=== PATIENT | female | born 2000 | race Caucasian/White ===

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

== ENCOUNTER 2018-06-30 03:17 | Emergency (ER) | payer OTHER ==
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
[2018-06-30] MEDS ORDERED: Adacel Vial IM ONE ×2 (03:31→04:55)
[2018-06-30 04:19] LABS: BASOPHIL % 0.4 % (0.0-0.4); Basophil (Absolute #) 0.03 (0-0.4); Eosinophil % 0.2 % (0.00-5.0); Eosinophil (Absolute #) 0.02 (0-0.5); Granulocyte Absolute (ANC) 5.58 (1.4-6.9); Granulocytes % 68.8 % (36.0-66.0); Hematocrit 39.6 % (35-47); Hemoglobin 12.8 gm/dl (12.0-16.0); Lymphocyte (Absolute #) 2.09 (1.0-4.6); Lymphocytes % 25.8 % (24.0-44.0); Mean Corpuscular Hemoglobin 28.4 pg (26-32); Mean Corpuscular Hgb Concent. 32.3 g/dl (32-36); Mean Platelet Volume 9.8 fl (6-9.5); Monocyte (Absolute #) 0.39 (0.0-1.3); Monocytes % 4.8 % (0.0-12.0); Platelet Count 294 K/mm3 (150-450); Red Cell Distribution Width 12.6 % (11.5-14.0); White Blood Count 8.1 K/mm3 (4.0-10.5)
[2018-06-30 04:39] LABS: ETHYL ALCOHOL 172 mg/dL (0-10)
[2018-06-30 04:41] LABS: ACETAMINOPHEN < 10 ug/ml (10-30); SALICYLATE < 1.0 mg/dL (2-20)
[2018-06-30 04:45] LABS: Appearance CLEAR (CLEAR); Bilirubin NEGATIVE (NEGATIVE); Blood LARGE Ery/ul (0-5); Glucose NEGATIVE (NEGATIVE); Ketones NEGATIVE (NEGATIVE); Leukocyte Esterase MODERATE (NEGATIVE); Nitrite NEGATIVE (NEGATIVE); Protein,Urine Dip NEGATIVE (Negative); Specific Gravity 1.005 (1.005-1.025); Urobilinogen NEGATIVE mg/dL (0-1)
[2018-06-30 04:49] LABS: Amphetamine,Urine NEGATIVE (NEGATIVE); Barbiturate,Urine NEGATIVE (NEGATIVE); Benzodiazepine,Urine NEGATIVE (NEGATIVE); Cocaine,Urine NEGATIVE (NEGATIVE); Methadone,Urine NEGATIVE (NEGATIVE); Opiate,Urine NEGATIVE (NEGATIVE); PCP,Urine NEGATIVE (NEGATIVE); THC,Urine NEGATIVE (NEGATIVE)
[2018-06-30] MEDS ORDERED: KEFLEX 500 MG PO ONE (05:00)
[2018-06-30] MEDS ORDERED: KEFLEX 500 MG ONE (05:03)
[2018-06-30] MEDS ORDERED: Sodium Chloride 0.9% 1000 ML 1,000 ML IV STA (07:54)
[2018-06-30] MEDS ORDERED: THIAMINE 200 MG/2 ML IV ONE (07:54)
[2018-06-30] MEDS ORDERED: THIAMINE 200 MG/2 ML ONE (07:56)
[2018-06-30] MEDS ORDERED: Sodium Chloride 0.9% 1000 ML 1,000 ML ONE (07:56)
[2018-06-30 10:26] VITALS: BP 110/72; PULSE 96; O2SAT 98
== END 2018-06-30 10:51 | disposition short-term general hospital (02) ==
LOC: ED 03:17
DX: T14.91XA Suicide attempt, initial encounter (principal); S40.212A Abrasion of left shoulder, initial encounter; N39.0 Urinary tract infection, site not specified; R31.9 Hematuria, unspecified; V49.9XXA Car occupant (driver) (passenger) injured in unspecified traffic accident, initial encounter
CPT/HCPCS: 36415; 80307; 81001; 81025; 85025; 87086; 90471; 96374; 99285; G0481; 36000; 90715; A9270-GY; G0480

== ENCOUNTER 2021-06-28 01:59 | Emergency (ER) | payer SELFPAY ==
[2021-06-28] MEDS ORDERED: Zofran 4 MG/2 ML VIAL IV ONE (02:26)
[2021-06-28] MEDS ORDERED: PROTONIX 40 MG IV IV ONE ×2 (02:26→02:27)
[2021-06-28] MEDS ORDERED: Sodium Chloride 0.9% 1000 ML 1,000 ML IV STA (02:26)
[2021-06-28] MEDS ORDERED: Zofran 4 MG/2 ML VIAL ONE (02:27)
--- NOTE | 2021-06-28 02:37 | ERPHSYRPT ---
- History of Present Illness Time Seen by Provider: 06/28/21 02:10 Source: patient Exam Limitations: no limitations Patient Subjective Stated Complaint: pt states "I have been vomiting for the past 2 weeks." Triage Nursing Assessment: pt ambulated into the er; pt is axo x4; c/o vomiting; pt denies abd pain; pt states vomiting for the past 2 weeks; pt denies following up with PCP; pt denies N/D; abd is round and soft; pt states last BM was 12/5; active bowel sounds in all quads; vitals wnl Physician History: Patient is a 20-year-old female presents to our ED for evaluation of intermittent nausea vomiting for 2 weeks. Patient states she was at work and vomited. Patient states that her boss advised her to come to the ER to get checked out. Patient denies pain. No abdominal pain. No chest pain. No diarrhea. No rash. No fever. No trauma. Symptoms are mild to moderate in intensity. No specific worsening or improving factors. No active bleeding. Patient is otherwise healthy. No significant past medical history. Patient is not on blood thinners. Patient voices no other complaints or concerns at this time. Timing/Duration: today Severity: mild Modifying Factors: Improves With: nothing Associated Symptoms: denies symptoms Allergies/Adverse Reactions: No Known Drug Allergies Allergy (Verified 06/28/21 02:04) Home Medications: Norethindrone AC-Eth Estradiol [Microgestin] 1 each PO DAILY 06/28/21 [History] Hx Tetanus, Diphtheria Vaccination/Date Given: Yes Hx Influenza Vaccination/Date Given: No Hx Pneumococcal Vaccination/Date Given: No Travel Risk - International Travel Have you traveled outside of the country in past 3 weeks: No - Coronavirus Screening Are you exhibiting any of the following symptoms?: Yes Symptoms: Vomiting/Diarrhea Close contact with a COVID-19 positive Pt in past 14-21 Days: No - Vaccine Status Have you recieved a 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 - Vaccination Dates Date of 2cond Vaccination (if applicable): 09/12 - Review of Systems Constitutional: No Symptoms, No Fever, No Chills Eyes: No Symptoms Ears, Nose, & Throat: No Symptoms Respiratory: No Symptoms, No Cough, No Dyspnea Cardiac: No Symptoms, No Chest Pain, No Edema, No Syncope Abdominal/Gastrointestinal: No Symptoms, No Abdominal Pain, No Nausea, No Vomiting, No Diarrhea Genitourinary Symptoms: No Symptoms, No Dysuria Musculoskeletal: No Symptoms, No Back Pain, No Neck Pain Skin: No Symptoms, No Rash Neurological: No Symptoms, No Dizziness, No Focal Weakness, No Sensory Changes Psychological: No Symptoms Endocrine: No Symptoms Hematologic/Lymphatic: No Symptoms Immunological/Allergic: No Symptoms All Other Systems: Reviewed and Negative - Past Medical History Pertinent Past Medical History: No Neurological History: No Pertinent History ENT History: No Pertinent History Cardiac History: No Pertinent History Respiratory History: No Pertinent History Endocrine Medical History: No Pertinent History Musculoskeletal History: No Pertinent History GI Medical History: No Pertinent History History: No Pertinent History Psycho-Social History: Anxiety, Depression Female Reproductive Disorders: No Pertinent History - Past Surgical History Past Surgical History: No - Social History Smoking Status: Current every day smoker How long have you smoked: 3 years Exposure to second hand smoke: Yes Drug Use: none Patient Lives Alone: No - Female History Hx Now: No - Nursing Vital Signs Nursing Vital Signs: Initial Vital Signs Temperature 98.1 F 06/28/21 02:06 Pulse Rate 103 H 06/28/21 02:06 Respiratory Rate 18 06/28/21 02:06 Blood Pressure 132/95 06/28/21 02:06 O2 Sat by Pulse Oximetry 99 06/28/21 02:06 Pain Scale Pain Intensity 0 - Physical Exam General Appearance: no apparent distress, alert Eye Exam: PERRL/EOMI, eyes nml inspection Ears, Nose, Throat Exam: normal ENT inspection, TMs normal, pharynx normal, moist mucous membranes Neck Exam: normal inspection, non-tender, supple, full range of motion Respiratory Exam: normal breath sounds, lungs clear, airway intact, No respiratory distress Cardiovascular Exam: regular rate/rhythm, normal heart sounds, normal peripheral pulses Gastrointestinal/Abdomen Exam: soft, normal bowel sounds, No tenderness, No mass Back Exam: normal inspection, normal range of motion, No CVA tenderness, No vertebral tenderness Extremity Exam: normal inspection, normal range of motion, pelvis stable Neurologic Exam: alert, oriented x 3, cooperative, normal mood/affect, nml cerebellar function, nml station & gait, sensation nml, No motor deficits Skin Exam: normal color, warm, dry, No rash Lymphatic Exam: No adenopathy SpO2 Interpretation: normal SpO2: 99 O2 Delivery: Room Air - Course Nursing assessment & vital signs reviewed: Yes Ordered Tests: Active Orders 24 hr Category Date Time Status IV Insertion STAT Care 06/28/21 02:26 Active CBC W DIFF Stat Lab 06/28/21 02:26 Completed CMP Stat Lab 06/28/21 02:26 Completed CULTURE,URINE Stat Lab 06/28/21 02:26 Received HCG,QUALITATIVE URINE Stat Lab 06/28/21 02:26 Completed LIPASE Stat Lab 06/28/21 02:26 Completed UA W/RFX UR CULTURE Stat Lab 06/28/21 02:26 Completed Medication Summary Generic Name Dose Route Start Last Admin Trade Name Freq PRN Reason Stop Dose Admin Sodium Chloride 1,000 mls @ 999 mls/hr 06/28/21 02:26 06/28/21 02:39 Sodium Chloride 0.9% 1000 Ml IV 06/28/21 03:26 999 mls/hr .Q1H1M STA Administration Discontinued Medications Generic Name Dose Route Start Last Admin Trade Name Freq PRN Reason Stop Dose Admin Sodium Chloride Confirm 06/28/21 02:39 Sodium Chloride 0.9% 1000 Ml Administered 06/28/21 02:40 Dose 1,000 mls @ ud .ROUTE .STK-MED ONE Ondansetron HCl 4 mg 06/28/21 02:26 06/28/21 02:38 Ondansetron Hcl 4 Mg/2 Ml Vial IV 06/28/21 02:27 4 mg STAT ONE Administration Ondansetron HCl Confirm 06/28/21 02:27 Ondansetron Hcl 4 Mg/2 Ml Vial Administered 06/28/21 02:28 Dose 4 mg .ROUTE .STK-MED ONE Pantoprazole Sodium 40 mg 06/28/21 02:26 06/28/21 02:38 Pantoprazole 40 Mg Vial IV 06/28/21 02:27 40 mg STAT ONE Administration Pantoprazole Sodium Confirm 06/28/21 02:27 Pantoprazole 40 Mg Vial Administered 06/28/21 02:28 Dose 40 mg IV .STK-MED ONE Lab/Rad Data: Laboratory Result Diagrams 06/28/21 02:26 06/28/21 02:26 Laboratory Results 06/28/21 06/28/21 06/28/21 Range/Units 02:26 02:26 02:26 WBC 12.0 H (4.0-10.5) K/mm3 RBC 4.33 (4.1-5.4) M/mm3 Hgb 12.2 (12.0-16.0) gm/dl Hct 38.6 (35-47) % MCV 89.1 (78-100) fl MCH 28.2 (26-32) pg MCHC 31.6 L (32-36) g/dl RDW 12.8 (11.5-14.0) % Plt Count 326 (150-450) K/mm3 MPV 9.7 (7.5-11.0) fl Gran % 55.0 (36.0-66.0) % Eos # (Auto) 0.11 (0-0.5) Absolute Lymphs (auto) 4.41 (1.0-4.6) Absolute Monos (auto) 0.82 (0.0-1.3) Lymphocytes % 36.9 (24.0-44.0) % Monocytes % 6.9 (0.0-12.0) % Eosinophils % 0.9 (0.00-5.0) % Basophils % 0.3 (0.0-0.4) % Absolute Granulocytes 6.57 (1.4-6.9) Basophils # 0.04 (0-0.4) Sodium 136 L (137-145) mmol/L Potassium 3.8 (3.5-5.1) mmol/L Chloride 102 (98-107) mmol/L Carbon Dioxide 25 (22-30) mmol/L Anion Gap 12.8 (5-15) MEQ/L BUN 11 (7-17) mg/dL Creatinine 0.91 (0.52-1.04) mg/dL Estimated GFR > 60.0 ML/MIN Glucose 112 H (74-106) mg/dL Calcium 9.5 (8.4-10.2) mg/dL Total Bilirubin 0.40 (0.2-1.3) mg/dL AST 20 (14-36) U/L ALT 17 (0-35) U/L Alkaline Phosphatase 49 (38-126) U/L Serum Total Protein 7.1 (6.3-8.2) g/dL Albumin 4.3 (3.5-5.0) g/dL Lipase 105 (23-300) U/L Urine Color (YELLOW) Urine Appearance (CLEAR) Urine pH (5-6) Ur Specific Mina (1.005-1.025) Urine Protein (Negative) Urine Ketones (NEGATIVE) Urine Blood (0-5) Dash/ul Urine Nitrite (NEGATIVE) Urine Bilirubin (NEGATIVE) Urine Urobilinogen (0-1) mg/dL Ur Leukocyte Esterase (NEGATIVE) Urine WBC (Auto) (0-5) /HPF Urine RBC (Auto) (0-2) /HPF U Epithel Cells (Auto) (FEW) /HPF Urine Bacteria (Auto) (NEGATIVE) /HPF Urine Mucus (Auto) (NEGATIVE) /HPF Urine Culture Reflexed (NO) Urine Glucose (NEGATIVE) mg/dL Urine HCG, Qual NEGATIVE (Negative) 06/28/21 Range/Units 02:26 WBC (4.0-10.5) K/mm3 RBC (4.1-5.4) M/mm3 Hgb (12.0-16.0) gm/dl Hct (35-47) % MCV (78-100) fl MCH (26-32) pg MCHC (32-36) g/dl RDW (11.5-14.0) % Plt Count (150-450) K/mm3 MPV (7.5-11.0) fl Gran % (36.0-66.0) % Eos # (Auto) (0-0.5) Absolute Lymphs (auto) (1.0-4.6) Absolute Monos (auto) (0.0-1.3) Lymphocytes % (24.0-44.0) % Monocytes % (0.0-12.0) % Eosinophils % (0.00-5.0) % Basophils % (0.0-0.4) % Absolute Granulocytes (1.4-6.9) Basophils # (0-0.4) Sodium (137-145) mmol/L Potassium (3.5-5.1) mmol/L Chloride (98-107) mmol/L Carbon Dioxide (22-30) mmol/L Anion Gap (5-15) MEQ/L BUN (7-17) mg/dL Creatinine (0.52-1.04) mg/dL Estimated GFR ML/MIN Glucose (74-106) mg/dL Calcium (8.4-10.2) mg/dL Total Bilirubin (0.2-1.3) mg/dL AST (14-36) U/L ALT (0-35) U/L Alkaline Phosphatase (38-126) U/L Serum Total Protein (6.3-8.2) g/dL Albumin (3.5-5.0) g/dL Lipase (23-300) U/L Urine Color MATTIE (YELLOW) Urine Appearance CLOUDY (CLEAR) Urine pH 5.0 (5-6) Ur Specific Mina 1.031 (1.005-1.025) Urine Protein 30 (Negative) Urine Ketones NEGATIVE (NEGATIVE) Urine Blood SMALL (0-5) Dash/ul Urine Nitrite NEGATIVE (NEGATIVE) Urine Bilirubin NEGATIVE (NEGATIVE) Urine Urobilinogen NEGATIVE (0-1) mg/dL Ur Leukocyte Esterase MODERATE (NEGATIVE) Urine WBC (Auto) 6-10 (0-5) /HPF Urine RBC (Auto) 0-2 (0-2) /HPF U Epithel Cells (Auto) MANY (FEW) /HPF Urine Bacteria (Auto) MODERATE (NEGATIVE) /HPF Urine Mucus (Auto) SLIGHT (NEGATIVE) /HPF Urine Culture Reflexed YES (NO) Urine Glucose NEGATIVE (NEGATIVE) mg/dL Urine HCG, Qual (Negative) - Progress Progress: improved Progress Note: Patient reassessed. She feels well. Patient tolerated p.o. Working diagnosis at this time is gastritis. Patient also has a urinary tract infection. A prescription for Macrobid, Protonix and Zofran was forwarded to patient's pharmacy. Patient understands that she is to maintain a clear liquid diet for the next several days. Patient agrees to follow-up with her primary care doctor within 48 hours for reevaluation. She voices no other complaints or concerns at this time. Portions of this note were created with voice recognition technology. There may be grammatical, spelling, punctuation or sound alike errors 06/28/21 03:25 Counseled pt/family regarding: lab results, diagnosis, need for follow-up - Departure Departure Disposition: Home Clinical Impression: UTI (urinary tract infection), Nausea and vomiting, Gastritis Condition: Stable Critical Care Time: No Referrals: NURY GAITAN MD [Primary Care Provider] - Follow up/PCP as directed Additional Instructions: Discharge/Care Plan EZEQUIELALFONSO BURNS was seen on 06/28/21 in the Emergency Room. The patient was counseled regarding Diagnosis,Lab results, Imaging studies, need for follow up and when to return to the Emergency Room. Prescriptions given: Discharge Note I have spoken with the patient and/or caregivers. I have explained the patient's condition, diagnosis and treatment plan based on the information available to me at this time. I have answered the patient's and/or caregiver's questions and addressed any concerns. The patient and/or caregivers have as good understanding of the patient's diagnosis, condition and treatment plan as can be expected at this point. The vital signs have been stable. The patient's condition is stable and appropriate for discharge from the emergency department. The patient will pursue further outpatient evaluation with the primary care physician or other designated or consulting physician as outlined in the discharge instructions. The patient and/or caregivers are agreeable to this plan of care and follow-up instructions have been explained in detail. The patient and/or caregivers have received these instruction. The patient/and or caregivers are aware that any significant change in condition or worsening of symptoms should prompt an immediate return to this or the closest emergency department or call 911. Prescriptions: Ondansetron ODT 4 MG [Zofran Odt 4 mg] 4 mg PO Q6H PRN PRN #10 tablet PRN Reason: Vomiting Nitrofurantoin Macro 100 mg [Macrobid 100MG Capsule] 100 mg PO BID 7 Days #14 cap Famotidine 20 mg [Pepcid 20 MG] 20 mg PO BID 14 Days #28 tablet
[2021-06-28] MEDS ORDERED: Sodium Chloride 0.9% 1000 ML 1,000 ML ONE (02:39)
[2021-06-28 02:52] LABS: Absolute Neutrophil Ct (ANC) 6.57 (1.4-6.9); BASOPHIL % 0.3 % (0.0-0.4); Basophil (Absolute #) 0.04 (0-0.4); Eosinophil % 0.9 % (0.00-5.0); Eosinophil (Absolute #) 0.11 (0-0.5); Hematocrit 38.6 % (35-47); Hemoglobin 12.2 gm/dl (12.0-16.0); Lymphocyte (Absolute #) 4.41 (1.0-4.6); Lymphocytes % 36.9 % (24.0-44.0); Mean Cell Volume 89.1 fl (78-100); Mean Corpuscular Hemoglobin 28.2 pg (26-32); Mean Corpuscular Hgb Concent. 31.6 g/dl (32-36); Mean Platelet Volume 9.7 fl (7.5-11.0); Monocyte (Absolute #) 0.82 (0.0-1.3); Monocytes % 6.9 % (0.0-12.0); Platelet Count 326 K/mm3 (150-450); Red Blood Count 4.33 M/mm3 (4.1-5.4); Red Cell Distribution Width 12.8 % (11.5-14.0)
[2021-06-28 02:57] LABS: Appearance CLOUDY (CLEAR); Bacteria MODERATE /HPF (NEGATIVE); Bilirubin NEGATIVE (NEGATIVE); Blood SMALL Ery/ul (0-5); Epithelial Cells MANY /HPF (FEW); Glucose NEGATIVE (NEGATIVE); Ketones NEGATIVE (NEGATIVE); Leukocyte Esterase MODERATE (NEGATIVE); Mucus SLIGHT /HPF (NEGATIVE); Nitrite NEGATIVE (NEGATIVE); Protein,Urine Dip 30 (Negative); RBC 0-2 /HPF (0-2); Specific Gravity 1.031 (1.005-1.025); Urobilinogen NEGATIVE mg/dL (0-1)
[2021-06-28 03:06] VITALS: BP 104/69; PULSE 82
[2021-06-28 03:08] LABS: ALBUMIN 4.3 g/dL (3.5-5.0); ALKALINE PHOSPHATASE 49 U/L (38-126); ANION GAP 12.8 MEQ/L (5-15); BLOOD UREA NITROGEN 11 mg/dL (7-17); CHLORIDE 102 mmol/L (98-107); Calcium 9.5 mg/dL (8.4-10.2); Carbon Dioxide 25 mmol/L (22-30); Creatinine 1 0.91 mg/dL (0.52-1.04); EST GLOMERULAR FILTRATION RATE > 60.0 ML/MIN; Glucose 112 mg/dL (74-106); LIPASE 105 U/L (23-300); Potassium 3.8 mmol/L (3.5-5.1); SGOT/AST 20 U/L (14-36); SGPT/ALT 17 U/L (0-35); SODIUM 136 mmol/L (137-145); Total Protein 7.1 g/dL (6.3-8.2)
[2021-06-28 03:17] VITALS: O2SAT 99
== END 2021-06-28 03:38 | disposition home or self-care (01) ==
LOC: ED 01:59
DX: K29.70 Gastritis, unspecified, without bleeding (principal); N39.0 Urinary tract infection, site not specified; R11.2 Nausea with vomiting, unspecified; Z72.0 Tobacco use
CPT/HCPCS: 36000; 36415; 80053; 81001; 83690; 84703; 85025; 87086; 96360; 96374; 96375; 99284; J2405

== ENCOUNTER 2024-06-06 01:16 | Emergency (ER) | payer MEDICAID, OTHER ==
[2024-06-06 01:28] VITALS: RESP 18; TEMP 98
[2024-06-06] MEDS ORDERED: Rocephin 1000 MG INJ ONE (01:36)
[2024-06-06] MEDS ORDERED: XYLOCAINE 1% HCL 20 ML MDV ONE (01:36)
--- NOTE | 2024-06-06 01:40 | ERPHSYRPT ---
- History of Present Illness Time Seen by Provider: 06/06/24 01:35 Source: patient Exam Limitations: no limitations Patient Subjective Stated Complaint: pt states that she has rt earache Triage Nursing Assessment: pt ambulated into the er; pt is axo x4; pt is holding rt ear, crying; c/o earache; pt states 8/10 pain to rt ear; no respiratory distress present; skin PDW; vitals wnl Physician History: Patient is 23-year-old female 4 months started having a severe right side ear pain with some purulent discharge for 1 day. Pain got worse so patient came to the emergency room. Patient denies any fever chills nausea vomiting any vaginal discharge or any vaginal hemorrhage. Timing/Duration: abrupt onset Severity: moderate ENT Location: ear (R) Prearrival Treatment: no prearrival treatment Associated Symptoms: ear pain (R) Allergies/Adverse Reactions: No Known Drug Allergies Allergy (Verified 06/06/24 01:19) Home Medications: Vit No.179/Iron/Folic [ Tablet] 1 each PO DAILY 06/06/24 [History] Hx Tetanus, Diphtheria Vaccination/Date Given: Yes Hx Influenza Vaccination/Date Given: No Hx Pneumococcal Vaccination/Date Given: No Immunizations Up to Date: Yes Travel Risk - International Travel Have you traveled outside of the country in past 3 weeks: No - Emerging Infectious Disease Are you exhibiting symptoms associated with any current EIDs: No - Review of Systems Constitutional: No Fever, No Chills Eyes: No Symptoms Ears, Nose, & Throat: Ear Pain Respiratory: No Cough, No Dyspnea Cardiac: No Chest Pain, No Edema, No Syncope Abdominal/Gastrointestinal: No Abdominal Pain, No Nausea, No Vomiting, No Diarrhea Genitourinary Symptoms: No Dysuria Musculoskeletal: No Back Pain, No Neck Pain Skin: No Rash Neurological: No Dizziness, No Focal Weakness, No Sensory Changes Psychological: No Symptoms Endocrine: No Symptoms All Other Systems: Reviewed and Negative - Past Medical History Pertinent Past Medical History: No Neurological History: No Pertinent History ENT History: No Pertinent History Cardiac History: No Pertinent History Respiratory History: No Pertinent History Endocrine Medical History: No Pertinent History Musculoskeletal History: No Pertinent History GI Medical History: No Pertinent History History: No Pertinent History Psycho-Social History: Anxiety, Depression Female Reproductive Disorders: No Pertinent History - Past Surgical History Past Surgical History: No - Female History Hx Now: Yes Gestational Age: 4 months - Social History Smoking Status: Smoker, status unknown How long have you smoked: 3 years Exposure to second hand smoke: Yes Drug Use: none Patient Lives Alone: No - Social Determinants of Health Will the patient participate in the screening: Yes Do you worry about a steady place to live?: No Do you have any problems with any of the following?: No known problems In the past 12 months,have you had to go without utilities?: No Transportation Issues: No Has anyone in your support network made you feel unsafe?: No Have you or anyone in your house had to go without enough: No - Nursing Vital Signs Nursing Vital Signs: Initial Vital Signs Pulse Rate 89 06/06/24 01:20 Blood Pressure 140/78 06/06/24 01:20 O2 Sat by Pulse Oximetry 100 06/06/24 01:20 Pain Scale Pain Intensity 8 - Physical Exam General Appearance: no apparent distress, alert Eye Exam: bilateral eye: PERRL, EOMI Ear Exam: right ear: discharge, erythema, TM red, TM bulging Nasal Exam: normal inspection Throat Exam: pharynx normal, moist mucus membranes, No tonsillar exudate Neck Exam: supple Cardiovascular/Respiratory Exam: normal breath sounds, regular rate/rhythm Abdominal Exam: non-tender, soft Neurologic Exam: alert, oriented x 3, sensation nml, No motor deficits Skin Exam: normal color, warm, dry SpO2: 100 - Course Nursing assessment & vital signs reviewed: Yes Ordered Tests: Medication Summary Discontinued Medications Generic Name Dose Route Start Last Admin Trade Name Freq PRN Reason Stop Dose Admin Ceftriaxone Sodium 1,000 mg 06/06/24 01:33 Ceftriaxone Sodium 1000 Mg Inj Vial IM 06/06/24 01:34 STAT ONE - Progress Progress: improved, pain not gone completely Counseled pt/family regarding: diagnosis, need for follow-up Medical Desision Making - Risk of complications Minimal Risk: Minimal risk of morbidity - Departure Departure Disposition: Home Clinical Impression: Otitis media Qualifiers: Otitis media type: suppurative Chronicity: acute Laterality: right Recurrence: non-recurrent Spontaneous tympanic membrane rupture: without spontaneous rupture Qualified Code(s): H66.001 - Acute suppurative otitis media without spontaneous rupture of ear drum, right ear Condition: Stable Critical Care Time: No Referrals: NURY GAITAN MD [Primary Care Provider] - Follow Up with PCP/3 days Instructions: Ear infections in adults Additional Instructions: Discharge/Care Plan ALFONSO NIEVES was seen on 06/06/24 in the Emergency Room. The patient was counseled regarding Diagnosis,Lab results, Imaging studies, need for follow up and when to return to the Emergency Room. Prescriptions given: Discharge Note I have spoken with the patient and/or caregivers. I have explained the patient's condition, diagnosis and treatment plan based on the information available to me at this time. I have answered the patient's and/or caregiver's questions and addressed any concerns. The patient and/or caregivers have as good understanding of the patient's diagnosis, condition and treatment plan as can be expected at this point. The vital signs have been stable. The patient's condition is stable and appropriate for discharge from the emergency department. The patient will pursue further outpatient evaluation with the primary care physician or other designated or consulting physician as outlined in the discharge instructions. The patient and/or caregivers are agreeable to this plan of care and follow-up instructions have been explained in detail. The patient and/or caregivers have received these instruction. The patient/and or caregivers are aware that any significant change in condition or worsening of symptoms should prompt an immediate return to this or the closest emergency department or call 911. ALFONSO NIEVES was seen on 06/06/24 n the Emergency Room. At that time you were treated for an emergent condition, during your visit Laboratory, Radiology and/or other procedures may have been ordered. It is very important that you follow-up with your Primary Care Physician NURY GAITAN within the next 24-48 hours to review your Emergency Room visit and the final results of testing that was ordered. Some test results such as Urine Cultures, Blood Cultures, and other cultures if ordered will not be finalized for 24-48 hours. If you do not have a Primary Care Provider please call the medical records department at [phone] ext [phone] to obtain a copy of your results or you may sign into our patient portal to obtain these results by visiting us @ [email or web address] and completing the following steps: 1. Click on the Patient Portal link 2. Click the Patient Self Enrollment Link to complete the enrollment form and entering your 3. Once the enrollment form is completed you will receive an email with a temporary ID and password at the email address you provided. 4. Next choose a user name and password. Your user name must be at least 4 characters long and your password must be at least 4 characters long. 5. Choose a security question from the list and provide your answer to the question. If you already have signed into the Health Portal you may access your Health Care Information 12/02 by the following steps: 1. Login to our website @ [email or web address] 2. Enter your original user name and password. FAQS The [facility] Health Portal is an online tool that contains your Lab Results, Radiology Reports, Visit History, Discharge Instructions and Health Summary Lab and Radiology Results will not be available for 72 hours on the portal. The Portal is a secure site, passwords are encryted and URLs are re-written so they cannot be copied and pasted. You and authorized family members are the only ones who can access your Portal. Also there is a timeout feature that protects your information if you leave the Portal page open. If you have technical difficulty please use the Contact Us link on the page this will allow you to submit any questions you have regarding the Portal or you may contact the Medical Record Department at [phone] ext [phone]. Prescriptions: Amoxicillin 500 mg PO TID #30 tablet
[2024-06-06] MEDS: Rocephin 1000 MG INJ IM ONE (01:41)
[2024-06-06] MEDS ORDERED: CORTISPORIN EAR DROPS 10 ML SUSPENSION OT ONE (01:43)
[2024-06-06] MEDS: CORTISPORIN EAR DROPS 10 ML SUSPENSION OT SCH (01:43)
[2024-06-06 02:04] VITALS: BP 116/61; PULSE 75; O2SAT 97
== END 2024-06-06 02:06 | disposition home or self-care (01) ==
LOC: ED 01:16
DX: H66.001 Acute suppurative otitis media without spontaneous rupture of ear drum, right ear (principal); H92.01 Otalgia, right ear; Z33.1 Pregnant state, incidental
CPT/HCPCS: 96372; 99283; 99284; J0696; A9270-GY

== ENCOUNTER 2024-08-10 19:33 | Observation (INO) | payer OTHER ==
--- NOTE | 2024-08-10 19:40 | ERPHSYRPT ---
- History of Present Illness Time Seen by Provider: 08/10/24 19:40 Source: patient, family Exam Limitations: no limitations Physician History: Pt had onset of vomiting and nasal congest, short of breath past 2 days - dizziness today - no abd pain or bleeding or discharg but is 26 weeks and due in October. Chest is clear, ht reg without m abd nontender gravid uterus, Discussed with pt and available family risks and benefits of testing/Tx in cluding CBC, CMP, EKG, Trop, BNP, D-dimer, UA, Amylase, Lipase, \ swabs for Covid, RSV, Flu and Strep, and they wish to proceed so these are ordered. family is here in ER as independent source for Hx. Results discussed with pt and available family. Timing/Duration: yesterday Severity: moderate Associated Symptoms: nausea, vomiting, shortness of breath Allergies/Adverse Reactions: No Known Drug Allergies Allergy (Verified 06/06/24 01:19) Home Medications: Vit No.179/Iron/Folic [ Tablet] 1 each PO DAILY 06/06/24 [History] Doxylamine Succinate [Unisom] 1 tab PO PRN 08/10/24 [History] Famotidine [Pepcid AC] 1 tab PO DAILY 08/10/24 [History] Ondansetron ODT 4 MG [Zofran Odt 4 mg] 1 tab PO PRN 08/10/24 [History] Hx Tetanus, Diphtheria Vaccination/Date Given: Yes Hx Influenza Vaccination/Date Given: No Hx Pneumococcal Vaccination/Date Given: No Travel Risk - Emerging Infectious Disease Are you exhibiting symptoms associated with any current EIDs: No - Review of Systems Constitutional: No Fever, No Chills Eyes: No Symptoms Ears, Nose, & Throat: No Symptoms Respiratory: Dyspnea, No Cough Cardiac: No Chest Pain, No Edema, No Syncope Abdominal/Gastrointestinal: Nausea, Vomiting, No Abdominal Pain, No Diarrhea Genitourinary Symptoms: No Dysuria Musculoskeletal: No Back Pain, No Neck Pain Skin: No Rash Neurological: Dizziness, No Focal Weakness, No Sensory Changes Psychological: No Symptoms Endocrine: No Symptoms Hematologic/Lymphatic: No Symptoms Immunological/Allergic: No Symptoms All Other Systems: Reviewed and Negative - Past Medical History Pertinent Past Medical History: No Neurological History: No Pertinent History ENT History: No Pertinent History Cardiac History: No Pertinent History Respiratory History: No Pertinent History Endocrine Medical History: No Pertinent History Musculoskeletal History: No Pertinent History GI Medical History: No Pertinent History History: No Pertinent History Psycho-Social History: Anxiety, Depression Female Reproductive Disorders: No Pertinent History - Past Surgical History Past Surgical History: No - Social History Smoking Status: Smoker, status unknown How long have you smoked: 3 years Exposure to second hand smoke: Yes Drug Use: none Patient Lives Alone: No - Social Determinants of Health Will the patient participate in the screening: Yes Do you worry about a steady place to live?: No In the past 12 months,have you had to go without utilities?: No Transportation Issues: No Has anyone in your support network made you feel unsafe?: No Have you or anyone in your house had to go without enough: No - Nursing Vital Signs Nursing Vital Signs: Initial Vital Signs Temperature 98.5 F 08/10/24 19:36 Pulse Rate 111 H 08/10/24 19:36 Respiratory Rate 18 08/10/24 19:36 Blood Pressure 122/71 08/10/24 19:36 O2 Sat by Pulse Oximetry 100 08/10/24 19:36 Pain Scale Pain Intensity 0 - Physical Exam General Appearance: no apparent distress, alert Eye Exam: PERRL/EOMI, eyes nml inspection Ears, Nose, Throat Exam: normal ENT inspection, TMs normal, pharynx normal, moist mucous membranes Neck Exam: normal inspection, non-tender, supple, full range of motion Respiratory Exam: normal breath sounds, lungs clear, No respiratory distress Cardiovascular Exam: regular rate/rhythm, normal heart sounds, normal peripheral pulses Gastrointestinal/Abdomen Exam: soft, normal bowel sounds, No tenderness, No mass Pelvic Exam: deferred Rectal Exam: deferred Back Exam: normal inspection, normal range of motion, No CVA tenderness, No vertebral tenderness Extremity Exam: normal inspection, normal range of motion, pelvis stable Neurologic Exam: alert, oriented x 3, cooperative, normal mood/affect, nml cerebellar function, nml station & gait, sensation nml, No motor deficits Skin Exam: normal color, warm, dry, No rash Lymphatic Exam: No adenopathy SpO2 Interpretation: normal SpO2: 98 O2 Delivery: Room Air - Course Nursing assessment & vital signs reviewed: Yes EKG Interpreted by Me: Sinus Tach, NORMAL AXIS, NORMAL INTERVALS, NORMAL QRS, Non-specific ST Changes Ordered Tests: Active Orders 24 hr Category Date Time Status EKG-ER Only STAT Care 08/10/24 19:54 Active Heart Tones-ED STAT Care 08/10/24 20:04 Active IV Insertion STAT Care 08/10/24 19:54 Active Telemetry q4h Care 08/10/24 22:54 Active AMYLASE Stat Lab 08/10/24 20:12 Completed CBC W DIFF Stat Lab 08/10/24 20:12 Completed CMP Stat Lab 08/10/24 20:12 Completed D-DIMER QUANTITATIVE Stat Lab 08/10/24 20:16 Completed LIPASE Stat Lab 08/10/24 20:12 Completed Lactic Acid Stat Lab 08/10/24 19:54 Completed Lactic Acid Stat Lab 08/10/24 22:11 Completed NT PRO BNPII Stat Lab 08/10/24 20:16 Completed TROPONIN Q4H Lab 08/10/24 20:12 Completed UA W/RFX UR CULTURE Stat Lab 08/10/24 21:23 Completed Medication Summary Generic Name Dose Route Start Last Admin Trade Name Freq PRN Reason Stop Dose Admin Potassium Chloride 20 meq in 100 mls @ 50 mls/hr 08/10/24 22:54 08/10/24 23: 05 Potassium Chloride 20 Meq In Water 100ml IV 08/11/24 00:53 50 mls/hr STAT ONE Administration Sodium Chloride 500 mls @ 100 mls/hr 08/10/24 23:15 08/10/24 23:04 Sodium Chloride 0.9% 500 Ml IV 09/09/24 23:14 100 mls/hr .Q5H ELENO Administration Sodium Chloride 1,000 mls @ 999 mls/hr 08/11/24 00:14 08/11/24 00:15 Sodium Chloride 0.9% 1000 Ml IV 08/11/24 01:14 999 mls/hr .Q1H1M STA Administration Discontinued Medications Generic Name Dose Route Start Last Admin Trade Name Freq PRN Reason Stop Dose Admin Diphenhydramine HCl 25 mg 08/10/24 19:54 08/10/24 20:04 Diphenhydramine Hcl 50 Mg/Ml Vial IV 08/10/24 19:55 25 mg STAT ONE Administration Diphenhydramine HCl Confirm 08/10/24 20:02 Diphenhydramine Hcl 50 Mg/Ml Vial Administered 08/10/24 20:03 Dose 50 mg .ROUTE .STK-MED ONE Sodium Chloride 1,000 mls @ 999 mls/hr 08/10/24 19:54 08/10/24 22:20 Sodium Chloride 0.9% 1000 Ml IV 08/10/24 20:54 Infused .Q1H1M STA Infusion Sodium Chloride Confirm 08/10/24 20:02 Sodium Chloride 0.9% 1000 Ml Administered 08/10/24 20:03 Dose 1,000 mls @ ud .ROUTE .STK-MED ONE Sodium Chloride Confirm 08/10/24 21:28 Sodium Chloride 0.9% 1000 Ml Administered 08/10/24 21:29 Dose 1,000 mls @ ud .ROUTE .STK-MED ONE Sodium Chloride 1,000 mls @ 999 mls/hr 08/10/24 21:34 08/10/24 21:36 Sodium Chloride 0.9% 1000 Ml IV 08/10/24 22:34 999 mls/hr .Q1H1M STA Administration Sodium Chloride Confirm 08/10/24 23:00 Sodium Chloride 0.9% 500 Ml Administered 08/10/24 23:01 Dose 500 mls @ ud IV .STK-MED ONE Potassium Chloride Confirm 08/10/24 23:00 Potassium Chloride 20 Meq In Water 100ml Administered 08/10/24 23:01 Dose 100 mls @ ud IV .STK-MED ONE Sodium Chloride Confirm 08/11/24 00:14 Sodium Chloride 0.9% 1000 Ml Administered 08/11/24 00:15 Dose 1,000 mls @ ud .ROUTE .STK-MED ONE Ondansetron HCl 4 mg 08/11/24 00:22 08/11/24 00:23 Ondansetron Hcl 4 Mg/2 Ml Vial IV 08/11/24 00:23 4 mg STAT ONE Administration Ondansetron HCl Confirm 08/11/24 00:22 Ondansetron Hcl 4 Mg/2 Ml Vial Administered 08/11/24 00:23 Dose 4 mg .ROUTE .STK-MED ONE Promethazine HCl 25 mg 08/10/24 20:00 08/10/24 20:07 Promethazine Hcl 25 Mg Tablet PO 08/10/24 20:01 25 mg STAT ONE Administration Promethazine HCl Confirm 08/10/24 20:06 Promethazine Hcl 25 Mg Tablet Administered 08/10/24 20:07 Dose 25 mg .ROUTE .STK-MED ONE Promethazine HCl Confirm 08/10/24 20:35 Promethazine Hcl 25 Mg Tablet Administered 08/10/24 20:36 Dose 25 mg .ROUTE .STK-MED ONE Promethazine HCl 25 mg 08/10/24 22:49 08/10/24 22:53 Promethazine Hcl 25 Mg Tablet PO 08/10/24 22:50 25 mg STAT ONE Administration Promethazine HCl Confirm 08/10/24 22:52 Promethazine Hcl 25 Mg Tablet Administered 08/10/24 22:53 Dose 25 mg .ROUTE .ST-MED ONE Lab/Rad Data: Laboratory Result Diagrams 08/10/24 20:12 08/10/24 20:12 Laboratory Results 08/10/24 08/10/24 08/10/24 Range/Units 22:55 22:11 21:23 WBC (3.98-10.04) x10^3/uL RBC (3.93-5.22) x10^6/uL Hgb (11.2-15.7) g/dL Hct (34.1-44.9) % MCV (79.4-94.8) fL MCH (25.6-32.2) pg MCHC (32.2-35.5) g/dL RDW (11.7-14.4) % Plt Count (182-369) x10^3/uL MPV (9.4-12.3) fL Gran % (34.0-71.1) % Immature Gran % (Auto) (0.001-0.429) % Nucleat RBC Rel Count (0.00-0.2) % Eos # (Auto) (0.04-0.36) x10^3/uL Immature Gran # (Auto) (0.001-0.031) x10^3u/L Absolute Lymphs (auto) (1.18-3.74) x10^3/uL Absolute Monos (auto) (0.24-0.86) x10^3/uL Absolute Nucleated RBC (0.00-0.012) x10^3u/L Lymphocytes % (19.3-51.7) % Monocytes % (4.7-12.5) % Eosinophils % (0.7-5.8) % Basophils % (0.1-1.2) % Absolute Granulocytes (1.56-6.13) x10^3/uL Basophils # (0.01-0.08) x10^3/uL D-Dimer (0.0-0.50) mg/L Sodium (135-145) mmol/L Potassium (3.5-5.1) mmol/L Chloride (98-107) mmol/L Carbon Dioxide (22-30) mmol/L Anion Gap (5-15) MEQ/L BUN (7-17) mg/dL Creatinine (0.52-1.04) mg/dL Estimated GFR ML/MIN Glucose (74-106) mg/dL Lactic Acid 2.1 H (0.4-2.0) Calcium (8.4-10.2) mg/dL Total Bilirubin (0.2-1.3) mg/dL AST (14-36) U/L ALT (0-35) U/L Alkaline Phosphatase (38-126) U/L Troponin I (0.000-0.033) ng/mL NT-Pro-B Natriuret Pep (<300) pg/mL Serum Total Protein (6.3-8.2) g/dL Albumin (3.5-5.0) g/dL Amylase (30-110) U/L Lipase (23-300) U/L Urine Color Yellow (Yellow) Urine Appearance Clear (Clear) Urine pH 6.5 (4.6-8.0) Ur Specific [place] <=1.005 (1.005-1.030) Urine Protein Negative (Negative) Urine Glucose (UA) Negative (Negative) mg/dL Urine Ketones 15 A (Negative) Urine Blood Negative (Negative) Urine Nitrite Negative (Negative) Urine Bilirubin Negative (Negative) Urine Urobilinogen 1.0 A (0.2) mg/dL Ur Leukocyte Esterase Negative (Negative) U Hyaline Cast (Auto) NONE SEEN (0-2) /LPF Urine Microscopic RBC 0-2 (0-5) /HPF Urine Microscopic WBC 3-5 (0-5) /HPF Ur Epithelial Cells Few (None Seen) /HPF Urine Bacteria Moderate A (None Seen) /HPF Urine Culture Reflexed NO (NO) Influenza Type A Ag NEGATIVE (NEGATIVE) Influenza Type B Ag NEGATIVE (NEGATIVE) RSV (PCR) NEGATIVE (NEGATIVE) SARS-CoV-2 (PCR) NEGATIVE (NEGATIVE) 08/10/24 08/10/24 08/10/24 Range/Units 20:16 20:16 20:12 WBC (3.98-10.04) x10^3/uL RBC (3.93-5.22) x10^6/uL Hgb (11.2-15.7) g/dL Hct (34.1-44.9) % MCV (79.4-94.8) fL MCH (25.6-32.2) pg MCHC (32.2-35.5) g/dL RDW (11.7-14.4) % Plt Count (182-369) x10^3/uL MPV (9.4-12.3) fL Gran % (34.0-71.1) % Immature Gran % (Auto) (0.001-0.429) % Nucleat RBC Rel Count (0.00-0.2) % Eos # (Auto) (0.04-0.36) x10^3/uL Immature Gran # (Auto) (0.001-0.031) x10^3u/L Absolute Lymphs (auto) (1.18-3.74) x10^3/uL Absolute Monos (auto) (0.24-0.86) x10^3/uL Absolute Nucleated RBC (0.00-0.012) x10^3u/L Lymphocytes % (19.3-51.7) % Monocytes % (4.7-12.5) % Eosinophils % (0.7-5.8) % Basophils % (0.1-1.2) % Absolute Granulocytes (1.56-6.13) x10^3/uL Basophils # (0.01-0.08) x10^3/uL D-Dimer 4.12 H* (0.0-0.50) mg/L Sodium (135-145) mmol/L Potassium (3.5-5.1) mmol/L Chloride (98-107) mmol/L Carbon Dioxide (22-30) mmol/L Anion Gap (5-15) MEQ/L BUN (7-17) mg/dL Creatinine (0.52-1.04) mg/dL Estimated GFR ML/MIN Glucose (74-106) mg/dL Lactic Acid (0.4-2.0) Calcium (8.4-10.2) mg/dL Total Bilirubin (0.2-1.3) mg/dL AST (14-36) U/L ALT (0-35) U/L Alkaline Phosphatase (38-126) U/L Troponin I < 0.012 (0.000-0.033) ng/mL NT-Pro-B Natriuret Pep < 20.0 (<300) pg/mL Serum Total Protein (6.3-8.2) g/dL Albumin (3.5-5.0) g/dL Amylase (30-110) U/L Lipase (23-300) U/L Urine Color (Yellow) Urine Appearance (Clear) Urine pH (4.6-8.0) Ur Specific [place] (1.005-1.030) Urine Protein (Negative) Urine Glucose (UA) (Negative) mg/dL Urine Ketones (Negative) Urine Blood (Negative) Urine Nitrite (Negative) Urine Bilirubin (Negative) Urine Urobilinogen (0.2) mg/dL Ur Leukocyte Esterase (Negative) U Hyaline Cast (Auto) (0-2) /LPF Urine Microscopic RBC (0-5) /HPF Urine Microscopic WBC (0-5) /HPF Ur Epithelial Cells (None Seen) /HPF Urine Bacteria (None Seen) /HPF Urine Culture Reflexed (NO) Influenza Type A Ag (NEGATIVE) Influenza Type B Ag (NEGATIVE) RSV (PCR) (NEGATIVE) SARS-CoV-2 (PCR) (NEGATIVE) 08/10/24 08/10/24 08/10/24 Range/Units 20:12 20:12 19:54 WBC 11.2 H (3.98-10.04) x10^3/uL RBC 4.19 (3.93-5.22) x10^6/uL Hgb 12.5 (11.2-15.7) g/dL Hct 37.0 (34.1-44.9) % MCV 88.3 (79.4-94.8) fL MCH 29.8 (25.6-32.2) pg MCHC 33.8 (32.2-35.5) g/dL RDW 13.1 (11.7-14.4) % Plt Count 308 (182-369) x10^3/uL MPV 10.3 (9.4-12.3) fL Gran % 84.6 H (34.0-71.1) % Immature Gran % (Auto) 0.5 H (0.001-0.429) % Nucleat RBC Rel Count 0.0 (0.00-0.2) % Eos # (Auto) 0.03 L (0.04-0.36) x10^3/uL Immature Gran # (Auto) 0.06 H (0.001-0.031) x10^3u/L Absolute Lymphs (auto) 1.26 (1.18-3.74) x10^3/uL Absolute Monos (auto) 0.35 (0.24-0.86) x10^3/uL Absolute Nucleated RBC 0.00 (0.00-0.012) x10^3u/L Lymphocytes % 11.2 L (19.3-51.7) % Monocytes % 3.1 L (4.7-12.5) % Eosinophils % 0.3 L (0.7-5.8) % Basophils % 0.3 (0.1-1.2) % Absolute Granulocytes 9.49 H (1.56-6.13) x10^3/uL Basophils # 0.03 (0.01-0.08) x10^3/uL D-Dimer (0.0-0.50) mg/L Sodium 136 (135-145) mmol/L Potassium 3.3 L (3.5-5.1) mmol/L Chloride 107 (98-107) mmol/L Carbon Dioxide 19 L (22-30) mmol/L Anion Gap 12.9 (5-15) MEQ/L BUN 3 L (7-17) mg/dL Creatinine 0.51 L (0.52-1.04) mg/dL Estimated GFR 131.9 ML/MIN Glucose 102 (74-106) mg/dL Lactic Acid 2.2 H (0.4-2.0) Calcium 9.8 (8.4-10.2) mg/dL Total Bilirubin 0.80 (0.2-1.3) mg/dL AST 28 (14-36) U/L ALT 19 (0-35) U/L Alkaline Phosphatase 95 (38-126) U/L Troponin I (0.000-0.033) ng/mL NT-Pro-B Natriuret Pep (<300) pg/mL Serum Total Protein 6.7 (6.3-8.2) g/dL Albumin 3.7 (3.5-5.0) g/dL Amylase 45 (30-110) U/L Lipase 78 (23-300) U/L Urine Color (Yellow) Urine Appearance (Clear) Urine pH (4.6-8.0) Ur Specific [place] (1.005-1.030) Urine Protein (Negative) Urine Glucose (UA) (Negative) mg/dL Urine Ketones (Negative) Urine Blood (Negative) Urine Nitrite (Negative) Urine Bilirubin (Negative) Urine Urobilinogen (0.2) mg/dL Ur Leukocyte Esterase (Negative) U Hyaline Cast (Auto) (0-2) /LPF Urine Microscopic RBC (0-5) /HPF Urine Microscopic WBC (0-5) /HPF Ur Epithelial Cells (None Seen) /HPF Urine Bacteria (None Seen) /HPF Urine Culture Reflexed (NO) Influenza Type A Ag (NEGATIVE) Influenza Type B Ag (NEGATIVE) RSV (PCR) (NEGATIVE) SARS-CoV-2 (PCR) (NEGATIVE) - Progress Progress: improved, re-examined Progress Note: 08/10/24 20:03 pt has failed home tx with doxylamine - discussed risks/benefit with pt and family of other antiemetics and they wish to try benadryl and phenergan 08/10/24 22:52 pt continues to have recurring vomiting and we want to control this and correct K so this will require more time. 08/11/24 00:13 DIscussed/ consulted with Dr. Olivares her OB and with the normal O2 sat a clinically significant PE seems unlikely and more likely the D dimer is elevated as a combination of her and the sinus infection - so it seems that a study to rule out PE would be less indicated. And her urine ketones are not too elevated so the dehydration of this level often does not require admission. However we discussed the advantage of taking the time for more IVF and Hospitalist to insure vomiting is controlled and fluids restored and that will take another hour. I explained the D dimer situation and risk with the pt including risk/benefit for CT with radiation and she would prefer to hold off on the CT since her symptoms are mild and there are other causes for elevation of the screening d dimer test, and she does understand however that there still could be a risk for that pathology and has the capacity to make this choice. 08/11/24 00:30 Pt began vomiting again . so we will try IV zofran. 08/11/24 00:47 Discussed with pt and this is the most problem she has had during the with vomiting. She still cannot tolerate fluids so I will consult with the hospitalist to discuss options. The hospitalist is checking the house rules. He called back ( Dr. Markham) and the hospital is checking with OB We are waiting for the call back. We contacted Dr. Gaitan who agreed that the pt should be in on obs and rehydration. The nurses on the floor will contact Dr. Olivares in the am to let him know we kept the pt after all. Discussed with : Ashlyn Will see patient in: hospital (observation) Counseled pt/family regarding: lab results, diagnosis, need for follow-up Medical Desision Making - Independent Historian Additional History obtained from: Family - Discussion of managment Care discussed with:: specialist Reviewed:: Test results, Need for additional workup Agreed on:: Treatment plan, need for follow-up, decision to admit, place in obs - Diagnostic Testing Diagnostic test were ordered, analyzed, and reviewed by me: Yes - Risk of complications The pt has a mod risk of morbidity or mortality based on: Need for prescription drug management The pt has a high risk of morbidity or mortality based on: Decision regarding hospitilization or escalation of hosp level of care - Departure Departure Disposition: Observation Clinical Impression: intractable vomiting during Condition: Good Critical Care Time: No Referrals: NURY GAITAN MD [Primary Care Provider] - Follow up/PCP as directed
[2024-08-10] MEDS ORDERED: BENADRYL 50 MG/ML ONE (20:02)
[2024-08-10] MEDS ORDERED: Sodium Chloride 0.9% 1000 ML 1,000 ML ONE ×2 (20:02→21:28)
[2024-08-10] MEDS: BENADRYL 50 MG/ML IV ONE (20:04)
[2024-08-10] MEDS: Sodium Chloride 0.9% 1000 ML 1,000 ML IV STA ×2 (20:04→21:36)
[2024-08-10] MEDS ORDERED: PHENERGAN 25 MG ONE ×3 (20:06→22:52)
[2024-08-10] MEDS: PHENERGAN 25 MG PO ONE ×2 (20:07→22:53)
[2024-08-10 20:13] LABS: Absolute Neutrophil Ct (ANC) 9.49 x10^3/uL (1.56-6.13); BASOPHIL % 0.3 % (0.1-1.2); Basophil (Absolute #) 0.03 x10^3/uL (0.01-0.08); Eosinophil % 0.3 % (0.7-5.8); Eosinophil (Absolute #) 0.03 x10^3/uL (0.04-0.36); Hemoglobin 12.5 g/dL (11.2-15.7); IMMATURE GRAN # 0.06 x10^3u/L (0.001-0.031); IMMATURE GRAN % 0.5 % (0.001-0.429); Lymphocyte (Absolute #) 1.26 x10^3/uL (1.18-3.74); Lymphocytes % 11.2 % (19.3-51.7); Mean Cell Volume 88.3 fL (79.4-94.8); Mean Corpuscular Hemoglobin 29.8 pg (25.6-32.2); Mean Corpuscular Hgb Concent. 33.8 g/dL (32.2-35.5); Mean Platelet Volume 10.3 fL (9.4-12.3); Monocyte (Absolute #) 0.35 x10^3/uL (0.24-0.86); Monocytes % 3.1 % (4.7-12.5); Neutrophil % 84.6 % (34.0-71.1); Platelet Count 308 x10^3/uL (182-369); Red Blood Count 4.19 x10^6/uL (3.93-5.22); Red Cell Distribution Width 13.1 % (11.7-14.4); White Blood Count 11.2 x10^3/uL (3.98-10.04)
[2024-08-10 20:20] LABS: ALBUMIN 3.7 g/dL (3.5-5.0); ANION GAP 12.9 MEQ/L (5-15); BILIRUBIN,TOTAL 0.8 mg/dL (0.2-1.3); Calcium 9.8 mg/dL (8.4-10.2); Creatinine 1 0.51 mg/dL (0.52-1.04); EST GLOMERULAR FILTRATION RATE 131.9 ML/MIN; Potassium 3.3 mmol/L (3.5-5.1); Total Protein 6.7 g/dL (6.3-8.2)
[2024-08-10 22:23] LABS: Appearance Clear (Clear); Bacteria Moderate /HPF (None Seen); Bilirubin Negative (Negative); Blood Negative (Negative); Epithelial Cells Few /HPF (None Seen); Glucose, Urine Negative (Negative); Hyaline Casts NONE SEEN /LPF (0-2); Ketones 15 (Negative); Leukocyte Esterase Negative (Negative); Nitrite Negative (Negative); Ph 6.5 (4.6-8.0); Protein,Urine Dip Negative (Negative); RBC 0-2 /HPF (0-5); Specific Gravity <=1.005 (1.005-1.030)
[2024-08-10] MEDS ORDERED: POTASSIUM CHLORIDE 20 mEq IN WATER 100ML 100 ML IV ONE (23:00)
[2024-08-10] MEDS ORDERED: Sodium Chloride 0.9% 500 ML 500 ML IV ONE (23:00)
[2024-08-10] MEDS: Sodium Chloride 0.9% 500 ML 500 ML IV SCH (23:04)
[2024-08-10] MEDS: POTASSIUM CHLORIDE 20 mEq IN WATER 100ML 20 MEQ/100 ML BAG IV ONE (23:05)
[2024-08-10 23:33] LABS: INFLUENZA A NEGATIVE (NEGATIVE); INFLUENZA B NEGATIVE (NEGATIVE); RESPIRATORY SYNCTIAL VIRUS NEGATIVE (NEGATIVE); SARS-CoV-2 Xpert Express NEGATIVE (NEGATIVE)
[2024-08-11] MEDS ORDERED: Sodium Chloride 0.9% 1000 ML 1,000 ML ONE (00:14)
[2024-08-11] MEDS: Sodium Chloride 0.9% 1000 ML 1,000 ML IV STA (00:15)
[2024-08-11] MEDS ORDERED: Zofran 4 MG/2 ML VIAL ONE (00:22)
[2024-08-11] MEDS: Zofran 4 MG/2 ML VIAL IV ONE (00:23)
[2024-08-11] MEDS ORDERED: PROMETHEGAN RC PRN (03:06)
[2024-08-11] MEDS ORDERED: Zofran 4 MG/2 ML VIAL IV SCH (03:15)
[2024-08-11] MEDS: Lactated Ringers 1,000 ML IV SCH (03:17)
[2024-08-11] MEDS: Zofran 4 MG/2 ML VIAL IV SCH (06:27)
--- NOTE | 2024-08-11 09:07 | PCM.HP ---
History of Present Illness - Chief Complaint Chief Complaint: nausea and vomiting History of Present Illness: is a 24 year old female at 26 3/7 wks EGA patient of Dr Olivares, she came to the ER last night for persistent nausea and vomiting, she has had trouble with nausea and vomiting during her but became severe yesterday while at work. She denies cough, no urinary symptoms, no abd pain, no diarrhea. No other associated symptoms, just unable to tolerate po intake. she tolerated a popsicle this morning but complains of burning in her chest/throat region after. - Review of Systems Constitutional: No Fever, No Chills Respiratory: No Cough, No Short Of Breath Cardiac: No Chest Pain, No Edema, No Syncope Abdominal/Gastrointestinal: Nausea, Vomiting, No Abdominal Pain, No Diarrhea, No Constipation, No Dysphagia Genitourinary Symptoms: No Dysuria Skin: No Rash All Other Systems: Reviewed and Negative Medications & Allergies Home Medications: Home Medication List Vit No.179/Iron/Folic [ Tablet] 1 each PO DAILY 06/06/24 [History Confirmed 08/10/24] Doxylamine Succinate [Unisom] 1 tab PO Q6H PRN PRN 08/10/24 [History Confirmed 08/11/24] Famotidine [Pepcid AC] 1 tab PO DAILY 08/10/24 [History Confirmed 08/10/24] Ondansetron ODT 4 MG [Zofran Odt 4 mg] 1 tab PO Q6H PRN 08/10/24 [History Confirmed 08/11/24] Allergies/Adverse Reactions: Allergies Allergy/AdvReac Type Severity Reaction Status Date / Time No Known Drug Allergies Allergy Verified 06/06/24 01:19 - Past Medical History Past Medical History: No Neurological History: No Pertinent History ENT History: No Pertinent History Cardiac History: No Pertinent History Respiratory History: No Pertinent History Endocrine Medical History: No Pertinent History Musculoskelatal History: No Pertinent History GI Medical History: No Pertinent History History: No Pertinent History Pyscho-Social History: No Pertinent History Reproductive Disorders: No Pertinent History - Female History Are you now?: Yes Gestational Age: 24 WKS - Past Surgical History Past Surgical History: No Neuro Surgical History: No Pertinent History Cardiac History: No Pertinent History Respiratory Surgery: No Pertinent History GI Surgical History: No Pertinent History Genitourinary Surgical Hx: No Pertinent History Musculskeletal Surgical Hx: No Pertinent History Female Surgical History: No Pertinent History - Social History Smoking Status: Former smoker How long have you smoked: 3 years Exposure to second hand smoke: Yes Alcohol: None Drug Use: none - Social Determinants of Health Will the patient participate in the screening: Yes Do you worry about a steady place to live?: No Do you have any problems with any of the following?: No known problems In the past 12 months,have you had to go without utilities?: No Have you or anyone in your house had to go without enough: No Transportation Issues: No Has anyone in your support network made you feel unsafe?: No Does the patient want assistance with any of the above?: No - Physical Exam Vital Signs: Vital Signs - 24 hr Temp Pulse Resp BP BP Pulse Ox 08/11/24 08:00 99.2 F 99 H 18 105/55 97 08/11/24 02:45 97.8 F 104 H 18 117/62 117/62 100 08/11/24 02:00 96 H 20 119/62 100 08/11/24 01:30 114 H 17 115/66 100 08/11/24 01:26 98 08/11/24 01:00 108 H 21 112/64 99 08/11/24 00:30 99 H 20 121/73 100 08/11/24 00:00 102 H 20 101/52 99 08/10/24 23:30 91 H 21 125/78 100 08/10/24 23:00 107 H 18 106/63 100 08/10/24 22:30 100 H 26 H 116/71 100 08/10/24 22:08 106 H 26 H 131/77 100 08/10/24 21:30 115/73 08/10/24 21:29 95 H 21 100 08/10/24 21:20 100 H 23 100 08/10/24 21:10 95 H 17 100 08/10/24 21:07 96 H 27 H 08/10/24 20:30 128/73 08/10/24 20:00 98 H 15 131/74 100 08/10/24 19:36 98.5 F 111 H 22 122/71 99 General Appearance: no apparent distress Neurologic Exam: alert, oriented x 3 Respiratory Exam: normal breath sounds, lungs clear, No respiratory distress Cardiovascular Exam: regular rate/rhythm, normal heart sounds, normal peripheral pulses Gastrointestinal/Abdomen Exam: soft (gravid uterus, nontender.) Back Exam: normal inspection, normal range of motion, No CVA tenderness Extremity Exam: normal inspection, normal range of motion, pelvis stable Skin Exam: normal color, warm, dry, No rash Results - Labs Lab/Micro Results: Lab Results-Last 24 Hours 08/10/24 08/10/24 08/10/24 Range/Units 19:54 20:12 20:12 WBC 11.2 H (3.98-10.04) x10^3/uL RBC 4.19 (3.93-5.22) x10^6/uL Hgb 12.5 (11.2-15.7) g/dL Hct 37.0 (34.1-44.9) % MCV 88.3 (79.4-94.8) fL MCH 29.8 (25.6-32.2) pg MCHC 33.8 (32.2-35.5) g/dL RDW 13.1 (11.7-14.4) % Plt Count 308 (182-369) x10^3/uL MPV 10.3 (9.4-12.3) fL Gran % 84.6 H (34.0-71.1) % Immature Gran % (Auto) 0.5 H (0.001-0.429) % Nucleat RBC Rel Count 0.0 (0.00-0.2) % Eos # (Auto) 0.03 L (0.04-0.36) x10^3/uL Immature Gran # (Auto) 0.06 H (0.001-0.031) x10^3u/L Absolute Lymphs (auto) 1.26 (1.18-3.74) x10^3/uL Absolute Monos (auto) 0.35 (0.24-0.86) x10^3/uL Absolute Nucleated RBC 0.00 (0.00-0.012) x10^3u/L Lymphocytes % 11.2 L (19.3-51.7) % Monocytes % 3.1 L (4.7-12.5) % Eosinophils % 0.3 L (0.7-5.8) % Basophils % 0.3 (0.1-1.2) % Absolute Granulocytes 9.49 H (1.56-6.13) x10^3/uL Basophils # 0.03 (0.01-0.08) x10^3/uL D-Dimer (0.0-0.50) mg/L Sodium 136 (135-145) mmol/L Potassium 3.3 L (3.5-5.1) mmol/L Chloride 107 (98-107) mmol/L Carbon Dioxide 19 L (22-30) mmol/L Anion Gap 12.9 (5-15) MEQ/L BUN 3 L (7-17) mg/dL Creatinine 0.51 L (0.52-1.04) mg/dL Estimated GFR 131.9 ML/MIN Glucose 102 (74-106) mg/dL Lactic Acid 2.2 H (0.4-2.0) Calcium 9.8 (8.4-10.2) mg/dL Total Bilirubin 0.80 (0.2-1.3) mg/dL AST 28 (14-36) U/L ALT 19 (0-35) U/L Alkaline Phosphatase 95 (38-126) U/L Troponin I (0.000-0.033) ng/mL NT-Pro-B Natriuret Pep (<300) pg/mL Serum Total Protein 6.7 (6.3-8.2) g/dL Albumin 3.7 (3.5-5.0) g/dL Amylase 45 (30-110) U/L Lipase 78 (23-300) U/L Urine Color (Yellow) Urine Appearance (Clear) Urine pH (4.6-8.0) Ur Specific [place] (1.005-1.030) Urine Protein (Negative) Urine Glucose (UA) (Negative) mg/dL Urine Ketones (Negative) Urine Blood (Negative) Urine Nitrite (Negative) Urine Bilirubin (Negative) Urine Urobilinogen (0.2) mg/dL Ur Leukocyte Esterase (Negative) U Hyaline Cast (Auto) (0-2) /LPF Urine Microscopic RBC (0-5) /HPF Urine Microscopic WBC (0-5) /HPF Ur Epithelial Cells (None Seen) /HPF Urine Bacteria (None Seen) /HPF Urine Culture Reflexed (NO) Influenza Type A Ag (NEGATIVE) Influenza Type B Ag (NEGATIVE) RSV (PCR) (NEGATIVE) SARS-CoV-2 (PCR) (NEGATIVE) 08/10/24 08/10/24 08/10/24 Range/Units 20:12 20:16 20:16 WBC (3.98-10.04) x10^3/uL RBC (3.93-5.22) x10^6/uL Hgb (11.2-15.7) g/dL Hct (34.1-44.9) % MCV (79.4-94.8) fL MCH (25.6-32.2) pg MCHC (32.2-35.5) g/dL RDW (11.7-14.4) % Plt Count (182-369) x10^3/uL MPV (9.4-12.3) fL Gran % (34.0-71.1) % Immature Gran % (Auto) (0.001-0.429) % Nucleat RBC Rel Count (0.00-0.2) % Eos # (Auto) (0.04-0.36) x10^3/uL Immature Gran # (Auto) (0.001-0.031) x10^3u/L Absolute Lymphs (auto) (1.18-3.74) x10^3/uL Absolute Monos (auto) (0.24-0.86) x10^3/uL Absolute Nucleated RBC (0.00-0.012) x10^3u/L Lymphocytes % (19.3-51.7) % Monocytes % (4.7-12.5) % Eosinophils % (0.7-5.8) % Basophils % (0.1-1.2) % Absolute Granulocytes (1.56-6.13) x10^3/uL Basophils # (0.01-0.08) x10^3/uL D-Dimer 4.12 H* (0.0-0.50) mg/L Sodium (135-145) mmol/L Potassium (3.5-5.1) mmol/L Chloride (98-107) mmol/L Carbon Dioxide (22-30) mmol/L Anion Gap (5-15) MEQ/L BUN (7-17) mg/dL Creatinine (0.52-1.04) mg/dL Estimated GFR ML/MIN Glucose (74-106) mg/dL Lactic Acid (0.4-2.0) Calcium (8.4-10.2) mg/dL Total Bilirubin (0.2-1.3) mg/dL AST (14-36) U/L ALT (0-35) U/L Alkaline Phosphatase (38-126) U/L Troponin I < 0.012 (0.000-0.033) ng/mL NT-Pro-B Natriuret Pep < 20.0 (<300) pg/mL Serum Total Protein (6.3-8.2) g/dL Albumin (3.5-5.0) g/dL Amylase (30-110) U/L Lipase (23-300) U/L Urine Color (Yellow) Urine Appearance (Clear) Urine pH (4.6-8.0) Ur Specific [place] (1.005-1.030) Urine Protein (Negative) Urine Glucose (UA) (Negative) mg/dL Urine Ketones (Negative) Urine Blood (Negative) Urine Nitrite (Negative) Urine Bilirubin (Negative) Urine Urobilinogen (0.2) mg/dL Ur Leukocyte Esterase (Negative) U Hyaline Cast (Auto) (0-2) /LPF Urine Microscopic RBC (0-5) /HPF Urine Microscopic WBC (0-5) /HPF Ur Epithelial Cells (None Seen) /HPF Urine Bacteria (None Seen) /HPF Urine Culture Reflexed (NO) Influenza Type A Ag (NEGATIVE) Influenza Type B Ag (NEGATIVE) RSV (PCR) (NEGATIVE) SARS-CoV-2 (PCR) (NEGATIVE) 08/10/24 08/10/24 08/10/24 Range/Units 21:23 22:11 22:55 WBC (3.98-10.04) x10^3/uL RBC (3.93-5.22) x10^6/uL Hgb (11.2-15.7) g/dL Hct (34.1-44.9) % MCV (79.4-94.8) fL MCH (25.6-32.2) pg MCHC (32.2-35.5) g/dL RDW (11.7-14.4) % Plt Count (182-369) x10^3/uL MPV (9.4-12.3) fL Gran % (34.0-71.1) % Immature Gran % (Auto) (0.001-0.429) % Nucleat RBC Rel Count (0.00-0.2) % Eos # (Auto) (0.04-0.36) x10^3/uL Immature Gran # (Auto) (0.001-0.031) x10^3u/L Absolute Lymphs (auto) (1.18-3.74) x10^3/uL Absolute Monos (auto) (0.24-0.86) x10^3/uL Absolute Nucleated RBC (0.00-0.012) x10^3u/L Lymphocytes % (19.3-51.7) % Monocytes % (4.7-12.5) % Eosinophils % (0.7-5.8) % Basophils % (0.1-1.2) % Absolute Granulocytes (1.56-6.13) x10^3/uL Basophils # (0.01-0.08) x10^3/uL D-Dimer (0.0-0.50) mg/L Sodium (135-145) mmol/L Potassium (3.5-5.1) mmol/L Chloride (98-107) mmol/L Carbon Dioxide (22-30) mmol/L Anion Gap (5-15) MEQ/L BUN (7-17) mg/dL Creatinine (0.52-1.04) mg/dL Estimated GFR ML/MIN Glucose (74-106) mg/dL Lactic Acid 2.1 H (0.4-2.0) Calcium (8.4-10.2) mg/dL Total Bilirubin (0.2-1.3) mg/dL AST (14-36) U/L ALT (0-35) U/L Alkaline Phosphatase (38-126) U/L Troponin I (0.000-0.033) ng/mL NT-Pro-B Natriuret Pep (<300) pg/mL Serum Total Protein (6.3-8.2) g/dL Albumin (3.5-5.0) g/dL Amylase (30-110) U/L Lipase (23-300) U/L Urine Color Yellow (Yellow) Urine Appearance Clear (Clear) Urine pH 6.5 (4.6-8.0) Ur Specific [place] <=1.005 (1.005-1.030) Urine Protein Negative (Negative) Urine Glucose (UA) Negative (Negative) mg/dL Urine Ketones 15 A (Negative) Urine Blood Negative (Negative) Urine Nitrite Negative (Negative) Urine Bilirubin Negative (Negative) Urine Urobilinogen 1.0 A (0.2) mg/dL Ur Leukocyte Esterase Negative (Negative) U Hyaline Cast (Auto) NONE SEEN (0-2) /LPF Urine Microscopic RBC 0-2 (0-5) /HPF Urine Microscopic WBC 3-5 (0-5) /HPF Ur Epithelial Cells Few (None Seen) /HPF Urine Bacteria Moderate A (None Seen) /HPF Urine Culture Reflexed NO (NO) Influenza Type A Ag NEGATIVE (NEGATIVE) Influenza Type B Ag NEGATIVE (NEGATIVE) RSV (PCR) NEGATIVE (NEGATIVE) SARS-CoV-2 (PCR) NEGATIVE (NEGATIVE) Assessment/Plan (1) Nausea and vomiting Current Visit: No Status: Acute Assessment & Plan: IV zofran and fluids, will switch to IV compazine if unable to tolerate po. will advance to a bland diet. Code(s): R11.2 - NAUSEA WITH VOMITING, UNSPECIFIED (2) GERD (gastroesophageal reflux disease) Current Visit: Yes Status: Acute Assessment & Plan: add IV pepcid Code(s): K21.9 - GASTRO-ESOPHAGEAL REFLUX DISEASE WITHOUT ESOPHAGITIS (3) Current Visit: Yes Status: Acute Code(s): Z34.90 - ENCNTR FOR SUPRVSN OF NORMAL , UNSP, UNSP TRIMESTER
[2024-08-11] MEDS: Pepcid 20 MG VIAL IV ONE (09:56)
[2024-08-11] MEDS: TYLENOL 325 MG PO PRN (10:06)
[2024-08-11] MEDS: Compazine 10 MG/2 ML IV PRN (10:21)
[2024-08-11 10:59] VITALS: O2SAT 98
[2024-08-11 14:26] VITALS: BP 114/50; PULSE 90; RESP 18; TEMP 97.9
--- NOTE | 2024-08-11 14:50 | PCM.DCORD ---
- Discharge Disposition: Home, Self-Care Condition: Good Prescriptions: New Prochlorperazine Maleate 5 mg* [Compazine 5 MG] 5 mg PO Q6H PRN PRN #20 tablet PRN Reason: Nausea Continue Vit No.179/Iron/Folic [ Tablet] 1 each PO DAILY Ondansetron ODT 4 MG [Zofran Odt 4 mg] 1 tab PO Q6H PRN PRN Reason: Nausea Famotidine [Pepcid AC] 1 tab PO DAILY Doxylamine Succinate [Unisom] 1 tab PO Q6H PRN PRN PRN Reason: Nausea Follow up with: PARAG MIRANDA DO [ACTIVE STAFF] - Call for Appointment
== END 2024-08-11 15:30 | disposition home or self-care (01) ==
LOC: ED 19:33 → MED SURG 08-11 02:29
PROVIDERS: ADMIT Family Medicine; ATTEND Family Medicine
DX: O21.2 Late vomiting of pregnancy (principal); Z3A.26 26 weeks gestation of pregnancy; R06.02 Shortness of breath; R42 Dizziness and giddiness
CPT/HCPCS: 0241U; 36415; 59025; 80053; 81001; 82150; 83605; 83690; 83880; 84484; 85025; 85379; 93005; 96374; 96375; 96376; 99213; 99285; G0378; J1200; J2405; J3480; A9270-GY

== ENCOUNTER 2024-11-08 12:19 | Inpatient (IN) | payer OTHER ==
[2024-11-08] MEDS ORDERED: Lactated Ringers 1,000 ML IV ONE (13:19)
[2024-11-08] MEDS: Lactated Ringers 1,000 ML IV SCH (13:36)
[2024-11-08 13:43] LABS: Absolute Neutrophil Ct (ANC) 6.22 x10^3/uL (1.56-6.13); BASOPHIL % 0.6 % (0.1-1.2); Basophil (Absolute #) 0.07 x10^3/uL (0.01-0.08); Eosinophil % 1.1 % (0.7-5.8); Eosinophil (Absolute #) 0.13 x10^3/uL (0.04-0.36); Hematocrit 37.9 % (34.1-44.9); Hemoglobin 12.3 g/dL (11.2-15.7); IMMATURE GRAN # 0.06 x10^3u/L (0.001-0.031); IMMATURE GRAN % 0.5 % (0.001-0.429); Lymphocyte (Absolute #) 4.46 x10^3/uL (1.18-3.74); Lymphocytes % 38.3 % (19.3-51.7); Mean Corpuscular Hemoglobin 27.6 pg (25.6-32.2); Mean Corpuscular Hgb Concent. 32.5 g/dL (32.2-35.5); Mean Platelet Volume 11.2 fL (9.4-12.3); Monocyte (Absolute #) 0.72 x10^3/uL (0.24-0.86); Monocytes % 6.2 % (4.7-12.5); Neutrophil % 53.3 % (34.0-71.1); Platelet Count 299 x10^3/uL (182-369); Red Blood Count 4.46 x10^6/uL (3.93-5.22); Red Cell Distribution Width 14.3 % (11.7-14.4); White Blood Count 11.7 x10^3/uL (3.98-10.04)
[2024-11-08] MEDS ORDERED: PITOCIN 30 UNITS/ LR 500 ML 30 UNITS/500 ML PLAST..BAG IV SCH (14:00)
[2024-11-08 14:03] LABS: Amphetamine,Urine NEGATIVE (NEGATIVE); Barbiturate,Urine NEGATIVE (NEGATIVE); Benzodiazepine,Urine NEGATIVE (NEGATIVE); Cocaine,Urine NEGATIVE (NEGATIVE); Methadone,Urine NEGATIVE (NEGATIVE); Opiate,Urine NEGATIVE (NEGATIVE); PCP,Urine NEGATIVE (NEGATIVE); THC,Urine NEGATIVE (NEGATIVE)
[2024-11-08] MEDS ORDERED: Ephedrine Sulfate 50 MG/ML IV PRN (14:29)
[2024-11-08] MEDS: PITOCIN 30 UNITS/ LR 500 ML 30 UNITS/500 ML PLAST..BAG IV SCH (14:43)
[2024-11-08 14:51] LABS: ABO TYPING A; Antibody Screen NEGATIVE (NEGATIVE); RH TYPING NEGATIVE
[2024-11-08] MEDS: FENTANYL 2 MCG-BUPIV 0.125%-NS 250 ML Epidur 250 ML EPIDURAL SCH (15:16)
[2024-11-08] MEDS: Zofran 4 MG/2 ML VIAL IV PRN (15:26)
[2024-11-08 17:24] LABS: Appearance Clear (Clear); Bacteria None Seen /HPF (None Seen); Bilirubin Negative (Negative); Blood Negative (Negative); Epithelial Cells None Seen /HPF (None Seen); Glucose, Urine Negative (Negative); Hyaline Casts NONE SEEN /LPF (0-2); Ketones 40 (Negative); Leukocyte Esterase Negative (Negative); Nitrite Negative (Negative); Ph 7.5 (4.6-8.0); Protein,Urine Dip Trace (Negative); RBC 0-2 /HPF (0-5); Specific Gravity 1.015 (1.005-1.030); Urobilinogen 0.2 mg/dL (0.2); WBC 0-2 /HPF (0-5)
[2024-11-08] MEDS ORDERED: Ambien 10 MG PO PRN (20:55)
[2024-11-08] MEDS ORDERED: NORCO 5/325 MG PO PRN (20:55)
[2024-11-08] MEDS ORDERED: Adacel Vial IM ONE (20:55)
[2024-11-08] MEDS ORDERED: TYLENOL EXTRA STRENGTH 500 MG PO PRN (20:55)
[2024-11-08] MEDS ORDERED: Mylicon 80MG PO PRN (20:55)
[2024-11-08] MEDS ORDERED: Dulcolax 10 MG SUPP PR PRN (20:55)
[2024-11-08] MEDS ORDERED: Restoril 15 MG PO PRN (20:55)
[2024-11-08] MEDS ORDERED: Anucort-HC SUPPOSITORY PR PRN (20:55)
[2024-11-08] MEDS: CORTISONE 1% CREAM TP PRN (23:05)
[2024-11-08] MEDS: Dermoplast Spray TP PRN (23:05)
[2024-11-08] MEDS: TUCKS TP PRN (23:06)
[2024-11-09] MEDS: MOTRIN 400 MG PO PRN (02:13)
[2024-11-09] MEDS: Docusate Sodium 100 MG PO SCH (02:59)
[2024-11-09 05:26] LABS: Absolute Neutrophil Ct (ANC) 15.53 x10^3/uL (1.56-6.13); BASOPHIL % 0.3 % (0.1-1.2); Basophil (Absolute #) 0.07 x10^3/uL (0.01-0.08); Eosinophil (Absolute #) 0.01 x10^3/uL (0.04-0.36); Hematocrit 32.9 % (34.1-44.9); Hemoglobin 10.6 g/dL (11.2-15.7); IMMATURE GRAN # 0.15 x10^3u/L (0.001-0.031); IMMATURE GRAN % 0.7 % (0.001-0.429); Lymphocyte (Absolute #) 4.07 x10^3/uL (1.18-3.74); Lymphocytes % 19.1 % (19.3-51.7); Mean Cell Volume 85.9 fL (79.4-94.8); Mean Corpuscular Hemoglobin 27.7 pg (25.6-32.2); Mean Corpuscular Hgb Concent. 32.2 g/dL (32.2-35.5); Mean Platelet Volume 10.9 fL (9.4-12.3); Monocyte (Absolute #) 1.46 x10^3/uL (0.24-0.86); Monocytes % 6.9 % (4.7-12.5); Platelet Count 256 x10^3/uL (182-369); Red Blood Count 3.83 x10^6/uL (3.93-5.22); Red Cell Distribution Width 14.6 % (11.7-14.4); White Blood Count 21.3 x10^3/uL (3.98-10.04)
[2024-11-09] MEDS: FERREX 150 PO SCH (09:11)
[2024-11-09] MEDS: TYLENOL EXTRA STRENGTH 500 MG PO PRN (09:11)
[2024-11-09] MEDS: Rhogam Plus 300 MCG IM ONE (11:34)
--- NOTE | 2024-11-09 12:13 | PCM.NOTE ---
Date and Time: 11/09/24 1212 Subjective Assessment: ppd 1 sp pt resting in bed able to ambulate and tolerate diet. did co b/l lower extremity discomfort since delivery. vss afebrile abd; soft uterus; firm lochia;mild hgb; 10 a/p sp ppd 1 leukocytosis will repeat cbc tomorrow anticipate discharge home tomorrow should fu in office in 3 wks Objective Data Vital Signs: Vital Signs - 24 hr Temp Pulse Resp BP Pulse Ox 11/09/24 08:00 98.0 F 89 16 126/77 97 11/09/24 02:25 98.5 F 103 H 18 130/68 99 11/09/24 00:00 98.3 F 87 18 132/61 100 11/08/24 23:30 98.3 F 87 18 132/61 100 11/08/24 22:30 98.2 F 86 18 123/72 100 11/08/24 22:15 98.2 F 87 18 120/73 98 11/08/24 22:00 98 H 18 133/81 98 11/08/24 21:45 88 18 132/75 98 11/08/24 21:30 96 H 18 115/61 99 11/08/24 21:15 96 H 18 109/59 99 11/08/24 21:00 98 F 90 18 109/59 88 L 11/08/24 20:45 98 F 90 18 113/65 99 11/08/24 20:30 98 F 88 18 111/56 99 11/08/24 20:15 18 100 11/08/24 20:00 98.2 F 86 18 100 11/08/24 19:45 98.2 F 18 100 11/08/24 19:30 98.2 F 94 H 20 100 11/08/24 19:15 98.2 F 89 18 100 11/08/24 19:00 88 18 99 11/08/24 18:45 88 18 99 11/08/24 18:30 88 18 98 11/08/24 18:15 88 18 98 11/08/24 18:00 75 18 11/08/24 17:45 75 18 11/08/24 17:30 75 18 11/08/24 17:15 75 18 11/08/24 17:00 75 18 11/08/24 16:45 75 18 11/08/24 16:30 75 18 11/08/24 16:19 75 18 111/64 11/08/24 16:15 75 18 11/08/24 16:00 97.4 F 80 18 100 11/08/24 15:45 97.4 F 80 18 100 11/08/24 15:29 97.4 F 80 18 100 11/08/24 15:00 97.4 F 80 18 100 11/08/24 14:30 97.4 F 80 18 100 11/08/24 13:48 97.4 F 80 18 122/78 100 11/08/24 13:00 97.6 F 11/08/24 12:19 97.6 F Pain Assessment - Last Documented Pain Intensity [Lower] 10 Pain Intensity [Anterior] 8 Pain Intensity 2 Pain Scale Used 0-10 Pain Scale Intake and Output: Intake & Output 11/07/24 11/08/24 11/09/24 11/10/24 11:59 11:59 11:59 11:59 Intake Total 1600 Output Total 1185 Balance 415 Weight 88.451 kg Lab Results: Lab Results-Last 24 Hours 11/08/24 11/08/24 11/08/24 Range/Units 13:12 13:12 13:34 WBC 11.7 H (3.98-10.04) x10^3/uL RBC 4.46 (3.93-5.22) x10^6/uL Hgb 12.3 (11.2-15.7) g/dL Hct 37.9 (34.1-44.9) % MCV 85.0 (79.4-94.8) fL MCH 27.6 (25.6-32.2) pg MCHC 32.5 (32.2-35.5) g/dL RDW 14.3 (11.7-14.4) % Plt Count 299 (182-369) x10^3/uL MPV 11.2 (9.4-12.3) fL Gran % 53.3 (34.0-71.1) % Immature Gran % (Auto) 0.5 H (0.001-0.429) % Nucleat RBC Rel Count 0.0 (0.00-0.2) % Eos # (Auto) 0.13 (0.04-0.36) x10^3/uL Immature Gran # (Auto) 0.06 H (0.001-0.031) x10^3u/L Absolute Lymphs (auto) 4.46 H (1.18-3.74) x10^3/uL Absolute Monos (auto) 0.72 (0.24-0.86) x10^3/uL Absolute Nucleated RBC 0.00 (0.00-0.012) x10^3u/L Lymphocytes % 38.3 (19.3-51.7) % Monocytes % 6.2 (4.7-12.5) % Eosinophils % 1.1 (0.7-5.8) % Basophils % 0.6 (0.1-1.2) % Absolute Granulocytes 6.22 H (1.56-6.13) x10^3/uL Basophils # 0.07 (0.01-0.08) x10^3/uL Urine Color (Yellow) Urine Appearance (Clear) Urine pH (4.6-8.0) Ur Specific [place] (1.005-1.030) Urine Protein (Negative) Urine Glucose (UA) (Negative) mg/dL Urine Ketones (Negative) Urine Blood (Negative) Urine Nitrite (Negative) Urine Bilirubin (Negative) Urine Urobilinogen (0.2) mg/dL Ur Leukocyte Esterase (Negative) U Hyaline Cast (Auto) (0-2) /LPF Urine Microscopic RBC (0-5) /HPF Urine Microscopic WBC (0-5) /HPF Ur Epithelial Cells (None Seen) /HPF Urine Bacteria (None Seen) /HPF Urine Culture Reflexed (NO) Urine Opiates Level NEGATIVE (NEGATIVE) Ur Methadone NEGATIVE (NEGATIVE) Urine Barbiturates NEGATIVE (NEGATIVE) Ur Phencyclidine (PCP) NEGATIVE (NEGATIVE) Urine Amphetamine NEGATIVE (NEGATIVE) U Benzodiazepine Level NEGATIVE (NEGATIVE) Urine Cocaine NEGATIVE (NEGATIVE) Urine Marijuana (THC) NEGATIVE (NEGATIVE) ABO Group A Rh Factor NEGATIVE Antibody Screen NEGATIVE (NEGATIVE) 11/08/24 11/09/24 Range/Units 17:13 05:10 WBC 21.3 H (3.98-10.04) x10^3/uL RBC 3.83 L (3.93-5.22) x10^6/uL Hgb 10.6 L (11.2-15.7) g/dL Hct 32.9 L (34.1-44.9) % MCV 85.9 (79.4-94.8) fL MCH 27.7 (25.6-32.2) pg MCHC 32.2 (32.2-35.5) g/dL RDW 14.6 H (11.7-14.4) % Plt Count 256 (182-369) x10^3/uL MPV 10.9 (9.4-12.3) fL Gran % 73.0 H (34.0-71.1) % Immature Gran % (Auto) 0.7 H (0.001-0.429) % Nucleat RBC Rel Count 0.0 (0.00-0.2) % Eos # (Auto) 0.01 L (0.04-0.36) x10^3/uL Immature Gran # (Auto) 0.15 H (0.001-0.031) x10^3u/L Absolute Lymphs (auto) 4.07 H (1.18-3.74) x10^3/uL Absolute Monos (auto) 1.46 H (0.24-0.86) x10^3/uL Absolute Nucleated RBC 0.00 (0.00-0.012) x10^3u/L Lymphocytes % 19.1 L (19.3-51.7) % Monocytes % 6.9 (4.7-12.5) % Eosinophils % 0.0 L (0.7-5.8) % Basophils % 0.3 (0.1-1.2) % Absolute Granulocytes 15.53 H (1.56-6.13) x10^3/uL Basophils # 0.07 (0.01-0.08) x10^3/uL Urine Color Yellow (Yellow) Urine Appearance Clear (Clear) Urine pH 7.5 (4.6-8.0) Ur Specific [place] 1.015 (1.005-1.030) Urine Protein Trace A (Negative) Urine Glucose (UA) Negative (Negative) mg/dL Urine Ketones 40 A (Negative) Urine Blood Negative (Negative) Urine Nitrite Negative (Negative) Urine Bilirubin Negative (Negative) Urine Urobilinogen 0.2 (0.2) mg/dL Ur Leukocyte Esterase Negative (Negative) U Hyaline Cast (Auto) NONE SEEN (0-2) /LPF Urine Microscopic RBC 0-2 (0-5) /HPF Urine Microscopic WBC 0-2 (0-5) /HPF Ur Epithelial Cells None Seen (None Seen) /HPF Urine Bacteria None Seen (None Seen) /HPF Urine Culture Reflexed NO (NO) Urine Opiates Level (NEGATIVE) Ur Methadone (NEGATIVE) Urine Barbiturates (NEGATIVE) Ur Phencyclidine (PCP) (NEGATIVE) Urine Amphetamine (NEGATIVE) U Benzodiazepine Level (NEGATIVE) Urine Cocaine (NEGATIVE) Urine Marijuana (THC) (NEGATIVE) ABO Group Rh Factor Antibody Screen (NEGATIVE) Radiology Exams: Radiology Procedures Category Date Time Status VENOUS BILATERAL EXTREMITY [US] Stat Exams 11/09/24 10:19 Taken Medications: Medications Generic Name Dose Route Start Last Admin Trade Name Freq PRN Reason Stop Dose Admin Acetaminophen 1,000 mg 11/08/24 13:34 11/09/24 09:11 Acetaminophen 500 Mg Tablet PO 12/08/24 13:33 1,000 mg Q4H PRN PRN Administration HEADACHE/MILD PAIN/ FEVER Acetaminophen 500 - 1,000 mg 11/08/24 20:55 Acetaminophen 500 Mg Tablet PO 12/08/24 20:54 Q4H PRN PRN MILD PAIN Hydrocodone Bitart/Acetaminophen 1 tab 11/08/24 20:55 Hydrocodone/Apap 5/325 1 Tab Tablet PO 11/13/24 20:54 Q4H PRN PRN SEVERE PAIN Benzocaine 40 gm 11/08/24 20:55 11/08/24 23:05 Benzocaine/Lanolin/Aloe Vera 85 Gm Can TP 12/08/24 20:54 40 gm UD PRN Administration pain Bisacodyl 10 mg 11/08/24 20:55 Bisacodyl 10 Mg Supp.Rect DC 12/08/24 20:54 PRN PRN CONSTIPATION Docusate Sodium 100 mg 11/08/24 22:00 11/09/24 09:11 Docusate Sodium 100 Mg Capsule PO 12/08/24 21:59 100 mg BID ELENO Administration Hydrocortisone 0.5 gm 11/08/24 20:55 11/08/24 23:05 Hydrocortisone 1% Cream 28 Gm Tube TP 12/08/24 20:54 0.5 gm PRN PRN Administration ITCHING Hydrocortisone Acetate 25 mg 11/08/24 20:55 Hydrocortisone Acetate 25 Mg Supp.Rect DC 12/08/24 20:54 PRN PRN HEMORRHOIDS Oxytocin/Lactated Ringer's 30 units in 500 mls @ 0 mls/hr 11/08/24 15:00 11/08/24 14:43 Pitocin 30 Units/ Lr 500 Ml IV 12/08/24 14:59 2 mls/hr .Q0M ELENO Administration Protocol Titrate Ibuprofen 800 mg 11/08/24 20:55 11/09/24 02:13 Ibuprofen 400 Mg Tablet PO 12/08/24 20:54 800 mg Q6H PRN PRN Administration MODERATE PAIN Polysaccharide Iron Complex 150 mg 11/09/24 10:00 11/09/24 09:11 Iron Polysaccharides Complex 150 Mg Capsule PO 12/09/24 09:59 150 mg DAILY ELENO Administration Simethicone 80 mg 11/08/24 20:55 Simethicone 80 Mg Tab.Chew PO 12/08/24 20:54 QID PRN PRN INDIGESTION Temazepam 15 - 30 mg 11/08/24 20:55 Temazepam 15 Mg Capsule PO 12/08/24 20:54 HS PRN PRN INSOMNIA Witch Shyanne 1 pad 11/08/24 20:55 11/08/24 23:06 Witch Shyanne 1 Pad Med..Pad TP 12/08/24 20:54 1 pad PRN PRN Administration ITCHING Zolpidem Tartrate 10 mg 11/08/24 20:55 Zolpidem Tartrate 10 Mg Tablet PO 12/08/24 20:54 HS PRN PRN INSOMNIA Discontinued Medications Generic Name Dose Route Start Last Admin Trade Name Freq PRN Reason Stop Dose Admin Diphtheria/Tetanus/Acell Pertussis 0.5 ml 11/08/24 20:55 Tdap --Diph,Pertuss(Acell),Tet Vac/Pf 0.5 Ml Vial IM 11/08/24 20:56 .ONCE ONE Ephedrine Sulfate 10 mg 11/08/24 14:29 Ephedrine Sulfate 50 Mg/Ml IV 12/08/24 14:28 PRN PRN SBP<100 Lactated Ringer's Confirm 11/08/24 13:19 Lactated Ringers Administered 11/08/24 13:20 Dose 1,000 mls @ ud IV .STK-MED ONE Lactated Ringer's 1,000 mls @ 125 mls/hr 11/08/24 14:00 11/08/24 14:46 Lactated Ringers IV 12/08/24 13:59 125 mls/hr .Q8H ELENO Administration Oxytocin/Lactated Ringer's 30 units in 500 mls @ 5 mls/hr 11/08/24 14:00 Pitocin 30 Units/ Lr 500 Ml IV 12/08/24 13:59 .Q24H ELENO FENTANYL/BUPIVACAINE/NS/PF 250 mls @ 0 mls/hr 11/08/24 14:30 11/08/24 15:16 Fentanyl 2 Mcg-Bupiv 0.125%-Ns 250 Ml Epidur EPIDURAL 12/08/24 14:29 10 mls/hr .Q0M ELENO Administration Protocol Titrate Ondansetron HCl 4 mg 11/08/24 13:34 11/08/24 15:26 Ondansetron Hcl 4 Mg/2 Ml Vial IV 12/08/24 13:33 4 mg Q4H PRN PRN Administration NAUSEA/VOMITING Rho Immune Globulin 300 mcg 11/09/24 10:42 11/09/24 11:34 Rho(D) Immune Globulin 300 Mcg/Syr Ml IM 11/09/24 10:43 300 mcg .ONCE ONE Administration Multi-Disciplinary Progress Notes: Multi-Disciplinary Progress Notes 11/08/24 20:23 Respiratory Note by Azul Read Infant brought to warmer crying with good tone. 's mouth was bulb [place]. was returned to mother. Initialized on 11/08/24 20:23 - END OF NOTE Assessment/Plan (1) Vaginal delivery Current Visit: Yes Status: Acute Code(s): O80 - ENCOUNTER FOR FULL-TERM UNCOMPLICATED DELIVERY
--- NOTE | 2024-11-09 12:23 | PCM.DS ---
Discharge Summary Date of Admission: 11/08/24 18:05 Admitting Physician: PARAG MIRANDA DO Consults: Consults on Case 11/08/24 14:16 OB Social Determinants of Health Referal ONCE Primary Care Provider: NURY GAITAN SEPIDEH Allergies Allergies No Known Drug Allergies Allergy (Verified 11/08/24 13:03) Hospital Summary - Hospital Course Hospital Course: pt admitted at 39 2/7 wks gestation in labor and was noted to being about 3cm dilated upon admission and progressed where she received her epidural and was started on pitocin and subsequently delivered live baby girl via on october 30. during period did well however did co lower extremity discomfort for which she underwent doppler lower extremity and was negative. pt had stable hgb at 10 and at this time was advised to fu in office in 3 wks for care. all questions answered to her satisfaction and at this time stable for discharge on november 10. - Vitals & Intake/Output Vital Signs: Vital Signs Temperature 98.0 F 11/09/24 08:00 Pulse Rate 89 11/09/24 08:00 Respiratory Rate 16 11/09/24 08:00 Blood Pressure 126/77 11/09/24 08:00 O2 Sat by Pulse Oximetry 97 11/09/24 08:00 Intake & Output: Intake & Output 11/07/24 11/08/24 11/09/24 11/10/24 11:59 11:59 11:59 11:59 Intake Total 1600 Output Total 1185 Balance 415 Weight 88.451 kg - Lab Result Diagrams: 11/09/24 05:10 Lab Results-Last 24 Hrs: Lab Results-Last 24 Hours 11/08/24 11/08/24 11/08/24 Range/Units 13:12 13:12 13:34 WBC 11.7 H (3.98-10.04) x10^3/uL RBC 4.46 (3.93-5.22) x10^6/uL Hgb 12.3 (11.2-15.7) g/dL Hct 37.9 (34.1-44.9) % MCV 85.0 (79.4-94.8) fL MCH 27.6 (25.6-32.2) pg MCHC 32.5 (32.2-35.5) g/dL RDW 14.3 (11.7-14.4) % Plt Count 299 (182-369) x10^3/uL MPV 11.2 (9.4-12.3) fL Gran % 53.3 (34.0-71.1) % Immature Gran % (Auto) 0.5 H (0.001-0.429) % Nucleat RBC Rel Count 0.0 (0.00-0.2) % Eos # (Auto) 0.13 (0.04-0.36) x10^3/uL Immature Gran # (Auto) 0.06 H (0.001-0.031) x10^3u/L Absolute Lymphs (auto) 4.46 H (1.18-3.74) x10^3/uL Absolute Monos (auto) 0.72 (0.24-0.86) x10^3/uL Absolute Nucleated RBC 0.00 (0.00-0.012) x10^3u/L Lymphocytes % 38.3 (19.3-51.7) % Monocytes % 6.2 (4.7-12.5) % Eosinophils % 1.1 (0.7-5.8) % Basophils % 0.6 (0.1-1.2) % Absolute Granulocytes 6.22 H (1.56-6.13) x10^3/uL Basophils # 0.07 (0.01-0.08) x10^3/uL Urine Color (Yellow) Urine Appearance (Clear) Urine pH (4.6-8.0) Ur Specific Hawley (1.005-1.030) Urine Protein (Negative) Urine Glucose (UA) (Negative) mg/dL Urine Ketones (Negative) Urine Blood (Negative) Urine Nitrite (Negative) Urine Bilirubin (Negative) Urine Urobilinogen (0.2) mg/dL Ur Leukocyte Esterase (Negative) U Hyaline Cast (Auto) (0-2) /LPF Urine Microscopic RBC (0-5) /HPF Urine Microscopic WBC (0-5) /HPF Ur Epithelial Cells (None Seen) /HPF Urine Bacteria (None Seen) /HPF Urine Culture Reflexed (NO) Urine Opiates Level NEGATIVE (NEGATIVE) Ur Methadone NEGATIVE (NEGATIVE) Urine Barbiturates NEGATIVE (NEGATIVE) Ur Phencyclidine (PCP) NEGATIVE (NEGATIVE) Urine Amphetamine NEGATIVE (NEGATIVE) U Benzodiazepine Level NEGATIVE (NEGATIVE) Urine Cocaine NEGATIVE (NEGATIVE) Urine Marijuana (THC) NEGATIVE (NEGATIVE) ABO Group A Rh Factor NEGATIVE Antibody Screen NEGATIVE (NEGATIVE) 11/08/24 11/09/24 Range/Units 17:13 05:10 WBC 21.3 H (3.98-10.04) x10^3/uL RBC 3.83 L (3.93-5.22) x10^6/uL Hgb 10.6 L (11.2-15.7) g/dL Hct 32.9 L (34.1-44.9) % MCV 85.9 (79.4-94.8) fL MCH 27.7 (25.6-32.2) pg MCHC 32.2 (32.2-35.5) g/dL RDW 14.6 H (11.7-14.4) % Plt Count 256 (182-369) x10^3/uL MPV 10.9 (9.4-12.3) fL Gran % 73.0 H (34.0-71.1) % Immature Gran % (Auto) 0.7 H (0.001-0.429) % Nucleat RBC Rel Count 0.0 (0.00-0.2) % Eos # (Auto) 0.01 L (0.04-0.36) x10^3/uL Immature Gran # (Auto) 0.15 H (0.001-0.031) x10^3u/L Absolute Lymphs (auto) 4.07 H (1.18-3.74) x10^3/uL Absolute Monos (auto) 1.46 H (0.24-0.86) x10^3/uL Absolute Nucleated RBC 0.00 (0.00-0.012) x10^3u/L Lymphocytes % 19.1 L (19.3-51.7) % Monocytes % 6.9 (4.7-12.5) % Eosinophils % 0.0 L (0.7-5.8) % Basophils % 0.3 (0.1-1.2) % Absolute Granulocytes 15.53 H (1.56-6.13) x10^3/uL Basophils # 0.07 (0.01-0.08) x10^3/uL Urine Color Yellow (Yellow) Urine Appearance Clear (Clear) Urine pH 7.5 (4.6-8.0) Ur Specific Hawley 1.015 (1.005-1.030) Urine Protein Trace A (Negative) Urine Glucose (UA) Negative (Negative) mg/dL Urine Ketones 40 A (Negative) Urine Blood Negative (Negative) Urine Nitrite Negative (Negative) Urine Bilirubin Negative (Negative) Urine Urobilinogen 0.2 (0.2) mg/dL Ur Leukocyte Esterase Negative (Negative) U Hyaline Cast (Auto) NONE SEEN (0-2) /LPF Urine Microscopic RBC 0-2 (0-5) /HPF Urine Microscopic WBC 0-2 (0-5) /HPF Ur Epithelial Cells None Seen (None Seen) /HPF Urine Bacteria None Seen (None Seen) /HPF Urine Culture Reflexed NO (NO) Urine Opiates Level (NEGATIVE) Ur Methadone (NEGATIVE) Urine Barbiturates (NEGATIVE) Ur Phencyclidine (PCP) (NEGATIVE) Urine Amphetamine (NEGATIVE) U Benzodiazepine Level (NEGATIVE) Urine Cocaine (NEGATIVE) Urine Marijuana (THC) (NEGATIVE) ABO Group Rh Factor Antibody Screen (NEGATIVE) - Radiology Exams Ordered Rad Exams-Entire Visit: Radiology Procedures Category Date Time Status VENOUS BILATERAL EXTREMITY [US] Stat Exams 11/09/24 10:19 Taken - Procedures and Test Procedures and Tests throughout Hospitalization: Therapy Orders & Screens 11/08/24 23:33 Standby ROUTINE Comment: Diagnosis: LABOR Final Diagnosis/Problem List - Final Discharge Diagnosis/Problem (1) Vaginal delivery Current Visit: Yes Status: Acute Code(s): O80 - ENCOUNTER FOR FULL-TERM UNCOMPLICATED DELIVERY - Discharge Disposition: Home, Self-Care Condition: Stable Prescriptions: No Action Vit No.179/Iron/Folic [ Tablet] 1 each PO DAILY Ondansetron ODT 4 MG [Zofran Odt 4 mg] 1 tab PO Q6H PRN PRN Reason: Nausea Famotidine [Pepcid AC] 1 tab PO DAILY Doxylamine Succinate [Unisom] 1 tab PO Q6H PRN PRN PRN Reason: Nausea Buspirone HCl 5 mg [Buspar 5 mg] 10 mg PO DAILY Follow up with: NURY GAITAN MD [Primary Care Provider, FAMILY [facility]ACTICE] PARAG MIRANDA DO [ACTIVE STAFF, OBSTETRICS-GYNECOLOGY] - 3 weeks
[2024-11-09 21:11] VITALS: RESP 18
--- NOTE | 2024-11-09 21:30 | XRAY ---
Indication: Bilateral calf tenderness. Two-dimensional sonogram and color Doppler imaging major venous vessels left and right leg performed. Comparison: None No thrombus seen in the examined deep venous vessels left and right leg including greater saphenous vein. Veins demonstrate normal compressibility. Venous waveforms are normal with and without augmentation. Impression: Left and right legs negative for DVT. Comment: Preliminary report was given.
[2024-11-10 05:51] LABS: Absolute Neutrophil Ct (ANC) 9.82 x10^3/uL (1.56-6.13); BASOPHIL % 0.5 % (0.1-1.2); Basophil (Absolute #) 0.07 x10^3/uL (0.01-0.08); Eosinophil % 0.9 % (0.7-5.8); Eosinophil (Absolute #) 0.14 x10^3/uL (0.04-0.36); Hematocrit 33.2 % (34.1-44.9); Hemoglobin 10.4 g/dL (11.2-15.7); IMMATURE GRAN % 0.7 % (0.001-0.429); Lymphocyte (Absolute #) 4.16 x10^3/uL (1.18-3.74); Lymphocytes % 27.5 % (19.3-51.7); Mean Cell Volume 88.1 fL (79.4-94.8); Mean Corpuscular Hemoglobin 27.6 pg (25.6-32.2); Mean Corpuscular Hgb Concent. 31.3 g/dL (32.2-35.5); Mean Platelet Volume 10.9 fL (9.4-12.3); Monocyte (Absolute #) 0.84 x10^3/uL (0.24-0.86); Monocytes % 5.6 % (4.7-12.5); Neutrophil % 64.8 % (34.0-71.1); Platelet Count 254 x10^3/uL (182-369); Red Blood Count 3.77 x10^6/uL (3.93-5.22); White Blood Count 15.1 x10^3/uL (3.98-10.04)
[2024-11-10 08:07] VITALS: BP 135/83; PULSE 86; TEMP 97.8; O2SAT 97
== END 2024-11-10 15:00 | disposition home or self-care (01) | DRG 807 ==
LOC: OB 12:19 → OBSVTOIN 18:05 → OB 18:05
PROVIDERS: ADMIT Obstetrics & Gynecology; ATTEND Obstetrics & Gynecology
PROC: 10E0XZZ Delivery of Products of Conception, External Approach (ICD-10-PCS; principal; 2024-11-08)
PROC: 0HQ9XZZ Repair Perineum Skin, External Approach (ICD-10-PCS; 2024-11-08)
DX: O69.81X0 Labor and delivery complicated by cord around neck, without compression, not applicable or unspecified (principal); Z37.0 Single live birth; O70.0 First degree perineal laceration during delivery; Z3A.39 39 weeks gestation of pregnancy; R10.2 Pelvic and perineal pain
CPT/HCPCS: 36415; 59426; 80307; 81001; 81002; 85025; 85461; 86850; 86900; 86901; 93970; 94799; 99213; J2405; J2590; J2790; A9270-GY